=== PATIENT | male | born 1950 | race Caucasian/White ===

== ENCOUNTER 2019-12-28 19:22 | Emergency (ER) | payer MEDICARE, OTHER ==
[2019-12-28] MEDS ORDERED: Proparacaine 0.5% Ophth Soln 15 ML Bottle EYERT STA (19:48)
[2019-12-28] MEDS ORDERED: Fluorescein 1 MG Ophth Strip EYELF ONE (19:48)
--- NOTE | 2019-12-28 20:34 | EDM.PDOC ---
<Oliverio Altamirano - Last Filed: 12/28/19 20:34> ED HPI GENERAL MEDICAL PROBLEM - General Chief Complaint: Eye Problems Stated Complaint: EYE PROBLEM Time Seen by Provider: 12/28/19 19:45 - Related Data Allergies Allergy/AdvReac Type Severity Reaction Status Date / Time Iodinated Contrast Media Allergy Itching Verified 12/28/19 19:41 [Iodinated Contrast Media - IV Dye] Penicillins Allergy Itching Verified 12/28/19 19:41 venom-honey bee Allergy Anaphylactic Verified 12/28/19 19:41 [bee venom (honey bee)] Shock Home Meds: Home Meds Fish Oil/[place]-3 Fatty Acids [Fish Oil 1,000 MG] 1 gm PO DAILY 01/23/14 [History] Pantoprazole [Protonix] 40 mg PO DAILY 01/23/14 [History] Rosuvastatin [Crestor] 5 mg PO DAILY 01/23/14 [History] Valsartan 40 mg PO DAILY 01/23/14 [History] metFORMIN [Glucophage] 1,000 mg PO DAILY 01/23/14 [History] sitaGLIPtin Phosphate [Januvia] 100 mg PO DAILY 01/23/14 [History] ED EYE w/ Add Procedure - Eye Procedure Alcaine Drops Administered: Yes (Proparacaine) Eye FB Removal: Other (The piece of metal just below the pupil opening at the 6 o'clock position. ) Antibiotic Oinment/Drps Admin: Right Eye Progress: The patient tolerated the procedure well he is only going to have an eye patch for 12 hours but he does get antibiotic erythromycin in that right eye overnight. - Additional/Other Procedure(s) Other (Free Text) Procedure(s) [Text1]: Is a piece of metal at the 6 o'clock position just below the pupil opening. I used an ophthalmic bur and remove most of the metal but there was an rust stain in the cornea itself I was not able to remove. Will place him erythromycin ointment in the eye and an eye patch just overnight. If he still has irritation of that eye in the morning he is to go see the gas station operator at [facility]. Departure - Departure Disposition: Home, Self-Care 01 Clinical Impression: Eye foreign bodies Qualifiers: Encounter type: initial encounter Laterality: right Qualified Code(s): T15.91XA - Foreign body on external eye, part unspecified, right eye, initial encounter - Discharge Information Instructions: Eye Foreign Body, [id number] Referrals: Alba Walker MD [Primary Care Provider] - Forms: ED Department Discharge Additional Instructions: You were seen in the emergency department today for sensation of a foreign body in your right eye. On exam, there was a small piece of metal overlying the cornea. The eye was removed using an ophthalmic bur. Erythromycin ointment and eye patch has been placed over your eye. This should stay on until tomorrow morning. After that time, you may remove it. If you are still experiencing pain to the eye, would recommend that you go to the gas station operator at [facility] tomorrow for examination. Return to ER as needed. <Caren Houser - Last Filed: 12/28/19 22:32> ED HPI GENERAL MEDICAL PROBLEM - General Source of Information: Reports: Patient, RN Notes Reviewed History Limitations: Reports: No Limitations - History of Present Illness INITIAL COMMENTS - FREE TEXT/NARRATIVE: Patient is a 69-year-old male presenting to the emergency department with complaints of pain to his right eye. He states yesterday he was grinding on some pipes and thinks he may have got something in his eye. Denies any vision changes, states his eye keeps watering and it makes his nose run. Right Eye Pain Score (Numeric/FACES): 6 Past Medical History HEENT History: Reports: Cataract, Other (See Below) Other HEENT History: glasses Cardiovascular History: Reports: High Cholesterol Endocrine/Metabolic History: Reports: Diabetes, Type II Social & Family History - Tobacco Use Tobacco Use Status *Q: Never Tobacco User Second Hand Smoke Exposure: No - Caffeine Use Caffeine Use: Reports: Coffee - Alcohol Use Days Per Week of Alcohol Use: 7 Number of Drinks Per Day: 2 Total Drinks Per Week: 14 - Recreational Drug Use Recreational Drug Use: No ED ROS GENERAL - Review of Systems Review Of Systems: Comprehensive ROS is negative, except as noted in HPI. ED EXAM GENERAL W FULL EYE - Physical Exam Exam: See Below Exam Limited By: No Limitations General Appearance: Alert, WD/WN, No Apparent Distress Eye Exam: Right Eye: Conjunctival Injection, Foreign Body (Shard of metal overlying the iris at the 6 o'clock position.) Eyelids: Bilateral: Normal Appearance Respiratory/Chest: No Respiratory Distress, Lungs Clear, Normal Breath Sounds, No Accessory Muscle Use, Chest Non-Tender Cardiovascular: Normal Peripheral Pulses, Regular Rate, Rhythm, No Edema, No Gallop, No JVD, No Murmur, No Rub GI/Abdominal: Normal Bowel Sounds, Soft, Non-Tender, No Organomegaly, No Distention, No Abnormal Bruit, No Mass Neurological: Alert Psychiatric: Normal Affect, Normal Mood Skin Exam: Warm, Dry, Intact, Normal Color, No Rash Course - Vital Signs Last Recorded V/S: Last Vital Signs Temp 97.6 F 12/28/19 19:39 Pulse 81 12/28/19 20:44 Resp 16 12/28/19 20:44 BP 152/94 H 12/28/19 20:44 Pulse Ox 96 12/28/19 20:44 - Orders/Labs/Meds Meds: Medications Discontinued Medications Generic Name Dose Route Start Last Admin Trade Name Freq PRN Reason Stop Dose Admin Erythromycin 1 gm 12/28/19 20:36 12/28/19 20:41 Erythromycin 0.5% Ophth Oint EYERT 12/28/19 20:37 1 applic ONETIME ONE Administration Fluorescein Sodium 1 mg 12/28/19 19:48 12/28/19 19:52 Ful-Isela EYELF 12/28/19 19:49 1 mg ONETIME ONE Administration Proparacaine HCl 1 ml 12/28/19 19:48 12/28/19 19:52 Proparacaine 0.5% Ophth Soln EYERT 12/28/19 19:49 1 applic NOW STA Administration - Re-Assessments/Exams Free Text/Narrative Re-Assessment/Exam: Patient is a 69-year-old male presenting to the emergency department with complaints of feeling he has something stuck in his right eye. Exam was completed using Paracaine and fluorescein with a Parham lamp. There is a visible piece of metal embedded in his cornea directly below the pupil at the 6 o'clock position. Spoke with Dr. Altamirano, he will attempt to remove the metal shard using an ophthalmic bur. See his procedure notes for documentation. Departure - Departure Time of Disposition: 20:37 Condition: Good Sepsis Event Note (ED) - Evaluation Sepsis Screening Result: No Definite Risk - Focused Exam Vital Signs: Vital Signs Temp Pulse Resp BP Pulse Ox 12/28/19 20:44 81 16 152/94 H 96 12/28/19 19:39 97.6 F 87 18 150/94 H 100
[2019-12-28] MEDS ORDERED: Erythromycin Base 0.5% Ophth Oint 1 GM Tube EYERT ONE (20:36)
[2019-12-28 20:45] VITALS: BP 152/94; PULSE 81
== END 2019-12-28 20:51 | disposition home or self-care (01) ==
LOC: JD.ED 19:22
DX: T15.91XA Foreign body on external eye, part unspecified, right eye, initial encounter (principal); E78.00 Pure hypercholesterolemia, unspecified; E11.9 Type 2 diabetes mellitus without complications; Z91.041 Radiographic dye allergy status; Z88.0 Allergy status to penicillin; Z91.030 Bee allergy status; Z79.899 Other long term (current) drug therapy
CPT/HCPCS: 65220; 99283; A9270

== ENCOUNTER 2020-05-12 01:54 | Emergency (ER) | payer MEDICARE, OTHER ==
[2020-05-12 02:12] VITALS: BP 157/93; PULSE 100
[2020-05-12] MEDS ORDERED: methylPREDNISolone Sodium Succinate 125 MG/2 ML SDV IVPUSH ONE (03:34)
--- NOTE | 2020-05-12 04:05 | EDM.PDOC ---
ED HPI GENERAL MEDICAL PROBLEM - General Chief Complaint: Respiratory Problem Stated Complaint: SOB Time Seen by Provider: 05/12/20 02:08 Source of Information: Reports: Patient History Limitations: Reports: No Limitations - History of Present Illness INITIAL COMMENTS - FREE TEXT/NARRATIVE: The patient has come in with shortness of breath. He has chronic lung disease of some sort. He says that he has had years of dust inhalation and is noted to have chronic lung problems as a result of this. He has been evaluated at [facility] for this but cannot tell me what specifically was done for him. He receives definitive care for his respiratory issues with cardiac cath lab technologist at [facility] in [place]. As far as the onset of the shortness of breath the patient claims that this is chronic and has been going on for months and apparently there is been some exacerbation in recent days onset of which not altogether clear but he said he came in tonight because he could not sleep. No fever. No chest pain. No GI or symptoms. No other symptoms of acute illness otherwise. He is a non-smoker. He is a type II diabetic. - Related Data Allergies Allergy/AdvReac Type Severity Reaction Status Date / Time Iodinated Contrast Media Allergy Itching Verified 05/12/20 02:13 [Iodinated Contrast Media - IV Dye] Penicillins Allergy Itching Verified 05/12/20 02:13 venom-honey bee Allergy Anaphylactic Verified 05/12/20 02:13 [bee venom (honey bee)] Shock Home Meds: Home Meds Fish Oil/[place]-3 Fatty Acids [Fish Oil 1,000 MG] 1 gm PO DAILY 01/23/14 [History] Pantoprazole [Protonix] 40 mg PO DAILY 01/23/14 [History] Rosuvastatin [Crestor] 5 mg PO DAILY 01/23/14 [History] Valsartan 40 mg PO DAILY 01/23/14 [History] metFORMIN [Glucophage] 1,000 mg PO DAILY 01/23/14 [History] sitaGLIPtin Phosphate [Januvia] 100 mg PO DAILY 01/23/14 [History] Past Medical History HEENT History: Reports: Cataract, Other (See Below) Other HEENT History: glasses Cardiovascular History: Reports: High Cholesterol Respiratory History: Reports: Other (See Below) Other Respiratory History: "lung scaring" Gastrointestinal History: Reports: GERD, Other (See Below) Other Gastrointestinal History: bleeding ulcer Endocrine/Metabolic History: Reports: Diabetes, Type II Social & Family History - Tobacco Use Tobacco Use Status *Q: Never Tobacco User Second Hand Smoke Exposure: No - Caffeine Use Caffeine Use: Reports: Coffee, Soda - Alcohol Use Days Per Week of Alcohol Use: 7 Number of Drinks Per Day: 4 Total Drinks Per Week: 28 Date of Last Drink: 05/12/20 Time of Last Drink: 18:00 - Recreational Drug Use Recreational Drug Use: No ED ROS GENERAL - Review of Systems Review Of Systems: Comprehensive ROS is negative, except as noted in HPI. ED EXAM, GENERAL - Physical Exam Exam: See Below Free Text/Narrative:: Patient is alert, no distress, but looks miserable. Does not look toxic. Skin is warm and dry with normal turgor. PERRLA EOMI. ENT grossly normal by inspection. Neck is supple. Patient cannot tolerate lying flat at this point. Lungs are notable for diminished breath sounds bilaterally and pectoriloquy. Heart is regular without loud murmur. Abdomen is soft and nontender. No flank tenderness. No peripheral edema cyanosis or clubbing of the digits. Neurologically the patient is intact with fluent speech no weakness and no sensory or motor deficit. His mood and affect are appropriate. #1 Interpretation EKG Date: 05/12/20 Time: 02:45 Rhythm: NSR Rate (Beats/Min): 97 [place]: Normal P-Wave: Present QRS: LBBB ST-T: Depressed QT: Prolonged Comparison: NA - No Prior EKG EKG Interpretation Comments: Findings as noted above, no jessi acute change. Course - Vital Signs Text/Narrative:: The patient is hypoxemic. It is not clear what his baseline might be. Troponin is negative. BNP about 2000. There is no white count chest x-ray shows extens bela presumably chronic changes but there is no previous x-ray for comparison. As patient has received all definitive care at [facility] he is being transferred. Accepted as a direct admission by Dr. Vasquez. Last Recorded V/S: Last Vital Signs Temp 36.2 C 05/12/20 02:11 Pulse 100 05/12/20 02:11 Resp 20 05/12/20 02:11 BP 157/93 H 05/12/20 02:11 Pulse Ox 92 L 05/12/20 02:11 - Orders/Labs/Meds Orders: Active Orders 24 hr Category Date Time Status EKG Documentation Completion [RC] STAT Care 05/12/20 02:33 Active RT Arterial Blood Gases, ABG [RC] Click to Edit Care 05/12/20 02:34 Active Chest 1V Frontal [CR] Stat Exams 05/12/20 02:32 Taken CBC WITH MANUAL DIFF [HEME] Stat Lab 05/12/20 02:22 Results CULTURE BLOOD [BC] Stat Lab 05/12/20 02:59 Received CULTURE BLOOD [BC] Stat Lab 05/12/20 03:15 Received UA RFX JACIEL AND CULT IF INDIC [URIN] Stat Lab 05/12/20 03:45 Received Blood Culture x2 Reflex Set [OM.PC] Stat Oth 05/12/20 02:33 Ordered Labs: Laboratory Tests 05/12/20 05/12/20 05/12/20 Range/Units 02:22 02:22 02:22 WBC 8.05 (4.23-9.07) K/mm3 RBC 4.99 (4.63-6.08) M/mm3 Hgb 15.9 (13.7-17.5) gm/dl Hct 47.8 (40.1-51.0) % MCV 95.8 H (79.0-92.2) fl MCH 31.9 (25.7-32.2) pg MCHC 33.3 (32.2-35.5) g/dl RDW Std Deviation 54.1 H (35.1-43.9) fL Plt Count 178 (163-337) K/mm3 MPV 10.5 (9.4-12.3) fl PT 11.0 (9.7-12.0) SECONDS INR 1.03 APTT (21.7-31.4) SECONDS D-Dimer, Quantitative (0.19-0.50) mg/L Puncture Site ABG pH (7.35-7.45) ABG pCO2 (35.0-45.0) mmHg ABG pO2 (80.0-100.0) mmHg ABG HCO3 (22.0-26.0) meq/L ABG O2 Saturation (96.0-97.0) % ABG Base Excess (-2-2.0) Noble Test A-a Gradient mmHg O2 Delivery Device FiO2 (21.00-100.00) % Sodium 141 (136-145) mEq/L Potassium 4.5 (3.5-5.1) mEq/L Chloride 105 (98-107) mEq/L Carbon Dioxide 25 (21-32) mEq/L Anion Gap 15.5 H (5-15) BUN 20 H (7-18) mg/dL Creatinine 1.4 H (0.7-1.3) mg/dL Est Cr Clr Drug Dosing 50.69 mL/min Estimated GFR (MDRD) 50 (>60) mL/min BUN/Creatinine Ratio 14.3 (14-18) Glucose 180 H (80-115) mg/dL Calcium 9.4 (8.5-10.1) mg/dL Magnesium 1.5 L (1.8-2.4) mg/dl Total Bilirubin 0.6 (0.2-1.0) mg/dL AST 46 H (15-37) U/L ALT 55 (16-63) U/L Alkaline Phosphatase 66 (46-116) U/L Creatine Kinase 97 (39-308) U/L Troponin I 0.019 (0.00-0.056) ng/mL NT-Pro-B Natriuret Pep (0-125) pg/mL Total Protein 7.0 (6.4-8.2) g/dl Albumin 3.5 (3.4-5.0) g/dl Globulin 3.5 gm/dL Albumin/Globulin Ratio 1.0 (1-2) TSH 3rd Generation 3.275 (0.358-3.74) uIU/mL SARS-CoV-2 RNA (RADHA) (NEGATIVE) 05/12/20 05/12/20 05/12/20 Range/Units 02:22 02:22 02:22 WBC (4.23-9.07) K/mm3 RBC (4.63-6.08) M/mm3 Hgb (13.7-17.5) gm/dl Hct (40.1-51.0) % MCV (79.0-92.2) fl MCH (25.7-32.2) pg MCHC (32.2-35.5) g/dl RDW Std Deviation (35.1-43.9) fL Plt Count (163-337) K/mm3 MPV (9.4-12.3) fl PT (9.7-12.0) SECONDS INR APTT 22.8 (21.7-31.4) SECONDS D-Dimer, Quantitative 0.73 H (0.19-0.50) mg/L Puncture Site ABG pH (7.35-7.45) ABG pCO2 (35.0-45.0) mmHg ABG pO2 (80.0-100.0) mmHg ABG HCO3 (22.0-26.0) meq/L ABG O2 Saturation (96.0-97.0) % ABG Base Excess (-2-2.0) Noble Test A-a Gradient mmHg O2 Delivery Device FiO2 (21.00-100.00) % Sodium (136-145) mEq/L Potassium (3.5-5.1) mEq/L Chloride (98-107) mEq/L Carbon Dioxide (21-32) mEq/L Anion Gap (5-15) BUN (7-18) mg/dL Creatinine (0.7-1.3) mg/dL Est Cr Clr Drug Dosing mL/min Estimated GFR (MDRD) (>60) mL/min BUN/Creatinine Ratio (14-18) Glucose (80-115) mg/dL Calcium (8.5-10.1) mg/dL Magnesium (1.8-2.4) mg/dl Total Bilirubin (0.2-1.0) mg/dL AST (15-37) U/L ALT (16-63) U/L Alkaline Phosphatase (46-116) U/L Creatine Kinase (39-308) U/L Troponin I (0.00-0.056) ng/mL NT-Pro-B Natriuret Pep 2057 H (0-125) pg/mL Total Protein (6.4-8.2) g/dl Albumin (3.4-5.0) g/dl Globulin gm/dL Albumin/Globulin Ratio (1-2) TSH 3rd Generation (0.358-3.74) uIU/mL SARS-CoV-2 RNA (RADHA) (NEGATIVE) 05/12/20 05/12/20 Range/Units 02:39 02:45 WBC (4.23-9.07) K/mm3 RBC (4.63-6.08) M/mm3 Hgb (13.7-17.5) gm/dl Hct (40.1-51.0) % MCV (79.0-92.2) fl MCH (25.7-32.2) pg MCHC (32.2-35.5) g/dl RDW Std Deviation (35.1-43.9) fL Plt Count (163-337) K/mm3 MPV (9.4-12.3) fl PT (9.7-12.0) SECONDS INR APTT (21.7-31.4) SECONDS D-Dimer, Quantitative (0.19-0.50) mg/L Puncture Site Rt radial ABG pH 7.43 (7.35-7.45) ABG pCO2 33.9 L (35.0-45.0) mmHg ABG pO2 60.0 L (80.0-100.0) mmHg ABG HCO3 22.0 (22.0-26.0) meq/L ABG O2 Saturation 89.5 L (96.0-97.0) % ABG Base Excess -1.1 (-2-2.0) Noble Test Positive A-a Gradient 48 mmHg O2 Delivery Device Room air FiO2 21.00 (21.00-100.00) % Sodium (136-145) mEq/L Potassium (3.5-5.1) mEq/L Chloride (98-107) mEq/L Carbon Dioxide (21-32) mEq/L Anion Gap (5-15) BUN (7-18) mg/dL Creatinine (0.7-1.3) mg/dL Est Cr Clr Drug Dosing mL/min Estimated GFR (MDRD) (>60) mL/min BUN/Creatinine Ratio (14-18) Glucose (80-115) mg/dL Calcium (8.5-10.1) mg/dL Magnesium (1.8-2.4) mg/dl Total Bilirubin (0.2-1.0) mg/dL AST (15-37) U/L ALT (16-63) U/L Alkaline Phosphatase (46-116) U/L Creatine Kinase (39-308) U/L Troponin I (0.00-0.056) ng/mL NT-Pro-B Natriuret Pep (0-125) pg/mL Total Protein (6.4-8.2) g/dl Albumin (3.4-5.0) g/dl Globulin gm/dL Albumin/Globulin Ratio (1-2) TSH 3rd Generation (0.358-3.74) uIU/mL SARS-CoV-2 RNA (RADHA) Negative (NEGATIVE) Meds: Medications Discontinued Medications Generic Name Dose Route Start Last Admin Trade Name Freq PRN Reason Stop Dose Admin Methylprednisolone Sodium Succinate 125 mg 05/12/20 03:34 05/12/20 03:40 Methylprednisolone Sodium Succinate 125 Mg/2 Ml Sdv IVPUSH 05/12/20 03:35 125 mg ONETIME ONE Administration Departure - Departure Time of Disposition: 04:06 Disposition: DC/Tfer to Acute Hospital 02 Condition: Fair Clinical Impression: Hypoxemia, Chronic lung disease, History of occupational exposure to risk factor, Elevated brain natriuretic peptide (BNP) level, Left bundle branch block, Cardiomegaly - Discharge Information Referrals: Alba Walker MD [Primary Care Provider] - Sepsis Event Note (ED) - Evaluation Sepsis Screening Result: No Definite Risk - Focused Exam Vital Signs: Vital Signs Temp Pulse Resp BP Pulse Ox 05/12/20 02:11 36.2 C 100 20 157/93 H 92 L - My Orders Last 24 Hours: My Active Orders 05/12/20 02:22 CBC WITH MANUAL DIFF [HEME] Stat 05/12/20 02:32 Chest 1V Frontal [CR] Stat 05/12/20 02:33 EKG Documentation Completion [RC] STAT Blood Culture x2 Reflex Set [OM.PC] Stat 05/12/20 02:34 RT Arterial Blood Gases, ABG [RC] Click to Edit 05/12/20 02:59 CULTURE BLOOD [BC] Stat 05/12/20 03:15 CULTURE BLOOD [BC] Stat 05/12/20 03:45 UA RFX JACIEL AND CULT IF INDIC [URIN] Stat - Assessment/Plan Last 24 Hours: My Active Orders 05/12/20 02:22 CBC WITH MANUAL DIFF [HEME] Stat 05/12/20 02:32 Chest 1V Frontal [CR] Stat 05/12/20 02:33 EKG Documentation Completion [RC] STAT Blood Culture x2 Reflex Set [OM.PC] Stat 05/12/20 02:34 RT Arterial Blood Gases, ABG [RC] Click to Edit 05/12/20 02:59 CULTURE BLOOD [BC] Stat 05/12/20 03:15 CULTURE BLOOD [BC] Stat 05/12/20 03:45 UA RFX JACIEL AND CULT IF INDIC [URIN] Stat
--- NOTE | 2020-05-12 07:43 | CR ---
Chest: Portable view of the chest was obtained. Comparison: Prior chest x-ray of 01/08/10. Heart is enlarged. Diffuse increased pulmonary vessels are seen. Bony structures are unremarkable. Impression: 1. Findings suspicious for fairly severe CHF if patient has no infectious symptoms. Diagnostic code #3
== END 2020-05-12 05:50 ==
LOC: JD.ED 01:54
DX: I44.7 Left bundle-branch block, unspecified (principal); I51.7 Cardiomegaly; R09.02 Hypoxemia; J98.4 Other disorders of lung; E78.00 Pure hypercholesterolemia, unspecified; K21.9 Gastro-esophageal reflux disease without esophagitis; E11.9 Type 2 diabetes mellitus without complications; Z79.84 Long term (current) use of oral hypoglycemic drugs; Z79.899 Other long term (current) drug therapy; Z57.9 Occupational exposure to unspecified risk factor; Z91.041 Radiographic dye allergy status; Z88.0 Allergy status to penicillin; Z20.822 Contact with and (suspected) exposure to COVID-19
CPT/HCPCS: 36415; 36600; 71045; 80053; 81001; 82550; 82803; 83735; 83880; 84443; 84484; 85007; 85027; 85379; 85610; 85730; 87040; 93005; 96374; 99285; J2930; U0002; 87186; 93010; 99284

== ENCOUNTER 2020-12-17 09:24 | Inpatient (IN) | payer MEDICARE, OTHER ==
[2020-12-17] MEDS ORDERED: Dexamethasone 4 MG/ML SDV IVPUSH ONE (10:50)
[2020-12-17] MEDS ORDERED: REMDESIVIR 200 MG in Sodium Chloride 0.9% 250 ML IV ONE ×2 (10:50→11:30)
--- NOTE | 2020-12-17 10:54 | EDM.PDOC ---
ED HPI GENERAL MEDICAL PROBLEM - General Chief Complaint: Respiratory Problem Stated Complaint: SOB SENT FROM [facility] Time Seen by Provider: 12/17/20 10:00 Source of Information: Reports: Patient, Provider History Limitations: Reports: No Limitations - History of Present Illness INITIAL COMMENTS - FREE TEXT/NARRATIVE: Patient is a 70-year-old male with a past medical history of CHF, pulmonary fibrosis and hypertension presenting with chief complaint of shortness of breath. Patient reports symptoms have been ongoing for the past several days. Patient has had associated dry cough, fatigue, body aches. The patient was in the walk-in clinic earlier today and diagnosed with Covid. He was also found to be hypoxic and therefore sent to the emergency room. Patient is not on home oxygen at all. Patient has been vaccinated against COVID-19. Patient otherwise reports compliance with medications. He denies any increased swelling in his lower extremities. No calf pain. No history of blood clots. - Related Data Allergies Allergy/AdvReac Type Severity Reaction Status Date / Time Iodinated Contrast Media Allergy Itching Verified 12/17/20 21:17 [Iodinated Contrast Media - IV Dye] Penicillins Allergy Itching Verified 12/17/20 21:17 venom-honey bee Allergy Anaphylactic Verified 12/17/20 21:17 [bee venom (honey bee)] Shock Home Meds: Home Meds Fish Oil/[place]-3 Fatty Acids [Fish Oil 1,000 MG] 1 gm PO DAILY 01/23/14 [History] Pantoprazole [Protonix] 40 mg PO DAILY 01/23/14 [History] Rosuvastatin [Crestor] 10 mg PO BEDTIME 01/23/14 [History] Valsartan 40 mg PO DAILY 01/23/14 [History] metFORMIN [Glucophage] 1,000 mg PO BIDMEALS 01/23/14 [History] sitaGLIPtin Phosphate [Januvia] 100 mg PO DAILY 01/23/14 [History] Albuterol [Proventil HFA] 2 inhalation INH Q4H PRN 12/17/20 [History] Fluticasone/Vilanterol [Breo Ellipta 200-25 MCG Inhalation Kit] 1 inhalation INH DAILY 12/17/20 [History] Folic Acid 1 mg PO DAILY 12/17/20 [History] Thiamine [Vitamin B-1] 100 mg PO DAILY 12/17/20 [History] Torsemide [Demadex] 20 mg PO DAILY 12/17/20 [History] carvediloL [Carvedilol] 3.125 mg PO BID 12/17/20 [History] Past Medical History HEENT History: Reports: Cataract, Other (See Below) Other HEENT History: glasses Cardiovascular History: Reports: High Cholesterol Respiratory History: Reports: Other (See Below) Other Respiratory History: "lung scaring" Gastrointestinal History: Reports: GERD, Other (See Below) Other Gastrointestinal History: bleeding ulcer Endocrine/Metabolic History: Reports: Diabetes, Type II Social & Family History - Tobacco Use Tobacco Use Status *Q: Never Tobacco User - Caffeine Use Caffeine Use: Reports: Coffee - Recreational Drug Use Recreational Drug Use: No ED ROS GENERAL - Review of Systems Review Of Systems: See Below Free Text/Narrative/Comment: In addition to that documented in the HPI above, the additional ROS was obtained: Constitutional: Denies fevers or chills Eyes: Denies vision changes ENMT: Denies sore throat CV: Denies chest pain Resp: Per HPI GI: Denies vomiting or diarrhea : Denies painful urination MSK: Denies recent trauma Skin: Denies new rashes Neuro: Denies new numbness or tingling or weakness Endocrine: Denies unexpected weight loss Heme: Denies bleeding disorders ED EXAM, GENERAL - Physical Exam Exam: See Below Free Text/Narrative:: I have reviewed the triage vital signs Const: Well nourished, well developed, appears stated age Eyes: Pupils Equal and reactive to light bilaterally, no conjunctival injection HENT: No signs of trauma or swelling, Neck supple without meningismus CV: Regular Rate Rhythm, Warm, well-perfused extremities RESP: Mildly tachypneic but able to speak full sentences. GI: soft, non-tender, non-distended, no masses MSK: No gross deformities appreciated Skin: Warm, dry. No rashes Neuro: Alert, wireless operator II-XII grossly intact. Sensation and motor function of extremities grossly intact. Psych: Appropriate mood and affect. #1 Interpretation EKG Date: 12/17/20 Time: 09:38 Rhythm: NSR Rate (Beats/Min): 99 [place]: LAD-Left [place] Deviation P-Wave: Present QRS: LBBB ST-T: Elevated Comparison: No Change EKG Interpretation Comments: abnormal EKG Course - Vital Signs Last Recorded V/S: Last Vital Signs Temp 36.7 C 12/18/20 23:37 Pulse 69 12/18/20 23:37 Resp 28 H 12/18/20 23:37 BP 101/85 12/18/20 23:37 Pulse Ox 88 L 12/18/20 23:55 - Orders/Labs/Meds Orders: Active Orders 24 hr Category Date Time Status Remdesivir 100 mg Med 12/18/20 08:00 Active Sodium Chloride 0.9% [Normal Saline] 100 ml IV Q24H Medication Orders Acetaminophen (Acetaminophen 325 Mg Tab) 650 mg PO Q4H PRN PRN Reason: Pain (Mild 1-3)/fever Last Admin: 12/18/20 10:43 Dose: 650 mg Documented by: RASHMI Albuterol (Albuterol 6.7 Gm Inhaler) 0 gm INH Q4H PRN PRN Reason: Shortness of Breath Albuterol/Ipratropium (Albuterol/Ipratropium 3.0-0.5 Mg/3 Ml Neb Soln) 3 ml NEB Q4H PRN PRN Reason: Shortness Of Breath/wheezing Last Admin: 12/18/20 21:12 Dose: 3 ml Documented by: Admin: 12/18/20 17:04 Dose: 3 ml Documented by: Admin: 12/18/20 07:52 Dose: 3 ml Documented by: REJI Benzocaine/Menthol (Benzocaine/Cetylpyridinium/Menthol Lozenge) 1 lozenge MUCMEM Q2H PRN PRN Reason: Sore Throat Last Admin: 12/17/20 22:29 Dose: 1 lozenge Documented by: SHORTY Carvedilol (Carvedilol 3.125 Mg Tab) 3.125 mg PO BIDMEALS [facility] Last Admin: 12/18/20 18:01 Dose: 3.125 mg Documented by: Admin: 12/18/20 06:38 Dose: 3.125 mg Documented by: Admin: 12/17/20 22:01 Dose: 3.125 mg Documented by: SHORTY Docusate Sodium (Docusate Sodium 100 Mg Cap) 100 mg PO BID PRN PRN Reason: Constipation Enoxaparin Sodium (Enoxaparin 30 Mg/0.3 Ml Syringe) 30 mg SUBCUT DAILY [facility] Last Admin: 12/18/20 10:44 Dose: 30 mg Documented by: RASHMI Folic Acid (Folic Acid 1 Mg Tab) 1 mg PO DAILY [facility] Last Admin: 12/18/20 08:02 Dose: 1 mg Documented by: RASHMI Furosemide (Furosemide 40 Mg/4 Ml Vial) 40 mg IVPUSH BIDDIURETIC [facility] Last Admin: 12/18/20 13:38 Dose: 40 mg Documented by: Admin: 12/18/20 06:39 Dose: 40 mg Documented by: SHORTY Remdesivir 100 mg/ Sodium (Chloride) 100 mls @ 100 mls/hr IV Q24H [facility] Stop: 12/21/20 08:59 Last Admin: 12/18/20 08:02 Dose: 100 mls/hr Documented by: RASHMI Insulin Human Lispro (Insulin Lispro 100 Unit/Ml 3 Ml Kwikpen) 0 unit SUBCUT QIDACANDBED [facility]; Protocol Last Admin: 12/18/20 21:59 Dose: Not Given Documented by: Admin: 12/18/20 20:59 Dose: 15 units Documented by: Admin: 12/18/20 17:58 Dose: 15 units Documented by: RASHMI Insulin Human Lispro (Insulin Lispro 100 Unit/Ml 3 Ml Kwikpen) 5 unit SUBCUT TIDAC [facility] Methylprednisolone Sodium Succinate (Methylprednisolone Sodium Succinate 40 Mg/1 Ml Sdv) 60 mg IVPUSH Q6H [facility] Last Admin: 12/19/20 01:34 Dose: 60 mg Documented by: Admin: 12/18/20 20:30 Dose: 60 mg Documented by: Admin: 12/18/20 13:35 Dose: 60 mg Documented by: Admin: 12/18/20 08:10 Dose: 60 mg Documented by: Admin: 12/18/20 04:16 Dose: 60 mg Documented by: Admin: 12/17/20 22:00 Dose: 60 mg Documented by: SHORTY Ondansetron HCl (Ondansetron 4 Mg Tab.Dis) 4 mg PO Q4H PRN PRN Reason: nausea, able to take PO Ondansetron HCl (Ondansetron 4 Mg/2 Ml Sdv) 4 mg IV Q4H PRN PRN Reason: Nausea/Vomiting Pantoprazole Sodium (Pantoprazole 40 Mg Tab.Cr) 40 mg PO DAILY [facility] Last Admin: 12/18/20 08:02 Dose: 40 mg Documented by: RASHMI Rosuvastatin Calcium (Rosuvastatin 10 Mg Tab) 10 mg PO DAILY [facility] Last Admin: 12/18/20 08:02 Dose: 10 mg Documented by: RASHMI Thiamine HCl (Thiamine 100 Mg Tab) 100 mg PO DAILY [facility] Last Admin: 12/18/20 08:02 Dose: 100 mg Documented by: RASHMI Labs: Laboratory Tests 12/17/20 12/17/20 12/17/20 Range/Units 09:45 09:45 09:45 WBC 3.71 L (4.23-9.07) K/mm3 RBC 4.58 L (4.63-6.08) M/mm3 Hgb 14.9 (13.7-17.5) gm/dl Hct 44.5 (40.1-51.0) % MCV 97.2 H (79.0-92.2) fl MCH 32.5 H (25.7-32.2) pg MCHC 33.5 (32.2-35.5) g/dl RDW Std Deviation 49.3 H (35.1-43.9) fL Plt Count 92 L D (163-337) K/mm3 MPV 10.1 (9.4-12.3) fl Neut % (Auto) 82.0 H (34.0-67.9) % Lymph % (Auto) 7.5 L (21.8-53.1) % [place] % (Auto) 10.0 (5.3-12.2) % Eos % (Auto) 0 L (0.8-7.0) Baso % (Auto) 0.0 L (0.1-1.2) % Neut # (Auto) 3.04 (1.78-5.38) K/mm3 Lymph # (Auto) 0.28 L (1.32-3.57) K/mm3 [place] # (Auto) 0.37 (0.30-0.82) K/mm3 Eos # (Auto) 0.00 L (0.04-0.54) K/mm3 Baso # (Auto) 0.00 L (0.01-0.08) K/mm3 Manual Slide Review Abnormal smear PT 10.7 (9.7-12.0) SECONDS INR 0.96 D-Dimer, Quantitative 1.45 H (0.19-0.50) mg/L Sodium 134 L (136-145) mEq/L Potassium 4.7 (3.5-5.1) mEq/L Chloride 98 (98-107) mEq/L Carbon Dioxide 25 (21-32) mEq/L Anion Gap 15.7 H (5-15) BUN 27 H (7-18) mg/dL Creatinine 2.0 H (0.7-1.3) mg/dL Est Cr Clr Drug Dosing 24.31 mL/min Estimated GFR (MDRD) 33 (>60) mL/min BUN/Creatinine Ratio 13.5 L (14-18) Glucose 142 H (70-99) mg/dL Calcium 8.5 (8.5-10.1) mg/dL Total Bilirubin 0.5 (0.2-1.0) mg/dL AST 60 H (15-37) U/L ALT 46 (16-63) U/L Alkaline Phosphatase 49 (46-116) U/L Troponin I 0.034 (0.00-0.056) ng/mL C-Reactive Protein 7.9 H* (<1.0) mg/dL NT-Pro-B Natriuret Pep (0-125) pg/mL Total Protein 6.6 (6.4-8.2) g/dl Albumin 3.3 L (3.4-5.0) g/dl Globulin 3.3 gm/dL Albumin/Globulin Ratio 1.0 (1-2) 12/17/20 Range/Units 09:45 WBC (4.23-9.07) K/mm3 RBC (4.63-6.08) M/mm3 Hgb (13.7-17.5) gm/dl Hct (40.1-51.0) % MCV (79.0-92.2) fl MCH (25.7-32.2) pg MCHC (32.2-35.5) g/dl RDW Std Deviation (35.1-43.9) fL Plt Count (163-337) K/mm3 MPV (9.4-12.3) fl Neut % (Auto) (34.0-67.9) % Lymph % (Auto) (21.8-53.1) % [place] % (Auto) (5.3-12.2) % Eos % (Auto) (0.8-7.0) Baso % (Auto) (0.1-1.2) % Neut # (Auto) (1.78-5.38) K/mm3 Lymph # (Auto) (1.32-3.57) K/mm3 [place] # (Auto) (0.30-0.82) K/mm3 Eos # (Auto) (0.04-0.54) K/mm3 Baso # (Auto) (0.01-0.08) K/mm3 Manual Slide Review PT (9.7-12.0) SECONDS INR D-Dimer, Quantitative (0.19-0.50) mg/L Sodium (136-145) mEq/L Potassium (3.5-5.1) mEq/L Chloride (98-107) mEq/L Carbon Dioxide (21-32) mEq/L Anion Gap (5-15) BUN (7-18) mg/dL Creatinine (0.7-1.3) mg/dL Est Cr Clr Drug Dosing mL/min Estimated GFR (MDRD) (>60) mL/min BUN/Creatinine Ratio (14-18) Glucose (70-99) mg/dL Calcium (8.5-10.1) mg/dL Total Bilirubin (0.2-1.0) mg/dL AST (15-37) U/L ALT (16-63) U/L Alkaline Phosphatase (46-116) U/L Troponin I (0.00-0.056) ng/mL C-Reactive Protein (<1.0) mg/dL NT-Pro-B Natriuret Pep 2373 H (0-125) pg/mL Total Protein (6.4-8.2) g/dl Albumin (3.4-5.0) g/dl Globulin gm/dL Albumin/Globulin Ratio (1-2) Meds: Medications Generic Name Dose Route Start Last Admin Trade Name Freq PRN Reason Stop Dose Admin Acetaminophen 650 mg 12/17/20 18:58 12/18/20 10:43 Acetaminophen 325 Mg Tab PO 650 mg Q4H PRN Administration Pain (Mild 1-3)/fever Albuterol 0 gm 12/17/20 19:04 Albuterol 6.7 Gm Inhaler INH Q4H PRN Shortness of Breath Albuterol/Ipratropium 3 ml 12/17/20 18:58 12/18/20 21:12 Albuterol/Ipratropium 3.0-0.5 Mg/3 Ml Neb Soln NEB 3 ml Q4H PRN Administration Shortness Of Breath/wheezing Benzocaine/Menthol 1 lozenge 12/17/20 21:59 12/17/20 22:29 Benzocaine/Cetylpyridinium/Menthol Lozenge MUCMEM 1 lozenge Q2H PRN Administration Sore Throat Carvedilol 3.125 mg 12/17/20 21:00 12/18/20 18:01 Carvedilol 3.125 Mg Tab PO 3.125 mg BIDMEALS RUSSELL Administration Docusate Sodium 100 mg 12/17/20 18:58 Docusate Sodium 100 Mg Cap PO BID PRN Constipation Enoxaparin Sodium 30 mg 12/18/20 09:00 12/18/20 10:44 Enoxaparin 30 Mg/0.3 Ml Syringe SUBCUT 30 mg DAILY RUSSELL Administration Folic Acid 1 mg 12/18/20 09:00 12/18/20 08:02 Folic Acid 1 Mg Tab PO 1 mg DAILY RUSSELL Administration Furosemide 40 mg 12/18/20 06:00 12/18/20 13:38 Furosemide 40 Mg/4 Ml Vial IVPUSH 40 mg BIDDIURETIC RUSSELL Administration Remdesivir 100 mg/ Sodium 100 mls @ 100 mls/hr 12/18/20 08:00 12/18/20 08:02 Chloride IV 12/21/20 08:59 100 mls/hr Q24H RUSSELL Administration Insulin Human Lispro 0 unit 12/18/20 17:00 12/18/20 21:59 Insulin Lispro 100 Unit/Ml 3 Ml Kwikpen SUBCUT Not Given QIDACANDBED [facility] Protocol Insulin Human Lispro 5 unit 12/19/20 07:00 Insulin Lispro 100 Unit/Ml 3 Ml Kwikpen SUBCUT TIDAC RUSSELL Methylprednisolone Sodium Succinate 60 mg 12/17/20 20:00 12/19/20 01:34 Methylprednisolone Sodium Succinate 40 Mg/1 Ml Sdv IVPUSH 60 mg Q6H RUSSELL Administration Ondansetron HCl 4 mg 12/17/20 18:58 Ondansetron 4 Mg Tab.Dis PO Q4H PRN nausea, able to take PO Ondansetron HCl 4 mg 12/17/20 18:58 Ondansetron 4 Mg/2 Ml Sdv IV Q4H PRN Nausea/Vomiting Pantoprazole Sodium 40 mg 12/18/20 09:00 12/18/20 08:02 Pantoprazole 40 Mg Tab.Cr PO 40 mg DAILY RUSSELL Administration Rosuvastatin Calcium 10 mg 12/18/20 09:00 12/18/20 08:02 Rosuvastatin 10 Mg Tab PO 10 mg DAILY RUSSELL Administration Thiamine HCl 100 mg 12/18/20 09:00 12/18/20 08:02 Thiamine 100 Mg Tab PO 100 mg DAILY RUSSELL Administration Discontinued Medications Generic Name Dose Route Start Last Admin Trade Name Freq PRN Reason Stop Dose Admin Dexamethasone 6 mg 12/17/20 10:50 12/17/20 11:05 Dexamethasone 4 Mg/Ml Sdv IVPUSH 12/17/20 10:51 6 mg ONETIME ONE Administration Enoxaparin Sodium 30 mg 12/18/20 09:00 12/18/20 17:04 Enoxaparin 30 Mg/0.3 Ml Syringe SUBCUT 12/18/20 11:00 Not Given DAILY RUSSELL Furosemide 20 mg 12/17/20 14:45 12/17/20 15:07 Furosemide 20 Mg/2 Ml Vial IVPUSH 12/17/20 14:46 20 mg ONETIME ONE Administration Furosemide 40 mg 12/17/20 21:00 12/17/20 22:01 Furosemide 40 Mg/4 Ml Vial IVPUSH 40 mg BID RUSSELL Administration Remdesivir 200 mg/ Sodium 250 mls @ 250 mls/hr 12/17/20 11:30 12/17/20 11:45 Chloride IV 12/17/20 12:29 250 mls/hr ONETIME ONE Administration Insulin Human Lispro 0 unit 12/17/20 22:00 12/18/20 12:47 Insulin Lispro 100 Unit/Ml 3 Ml Kwikpen SUBCUT 15 unit QIDACANDBED RUSSELL Administration Protocol - Re-Assessments/Exams Free Text/Narrative Re-Assessment/Exam: 12/17/20 1200 On arrival, patient significantly hypoxic and was requiring 5 L via nasal cannula. Patient is still mildly tachypneic. Patient does have evidence of COVID hypoxia but also may have component of CHF exacerbation. Patient does have pulmonary edema on chest x-ray. Laboratory studies noted. Patient does have inflammatory markers with elevated CRP, D-dimer. Unlikely pulmonary embolism at this time. Patient does require admission for his respiratory status. He was given Lasix, dexamethasone, remdesivir in the emergency room. At this time, there are no beds available in the hospital or the [facility]. Patient currently boarding in the emergency room in stable condition. Departure - Departure Time of Disposition: 19:00 Disposition: Admitted As Inpatient 66 Clinical Impression: COVID-19, CHF exacerbation - Discharge Information Sepsis Event Note (ED) - Evaluation Sepsis Screening Result: No Definite Risk - Problem List Review Problem List Initiated/Reviewed/Updated: Yes - My Orders Last 24 Hours: My Active Orders 12/18/20 08:00 Remdesivir 100 mg Sodium Chloride 0.9% [Normal Saline] 100 ml IV Q24H - Assessment/Plan Last 24 Hours: My Active Orders 12/18/20 08:00 Remdesivir 100 mg Sodium Chloride 0.9% [Normal Saline] 100 ml IV Q24H Assessment:: Patient is a 7-year-old male presented to the emergency room with complaint of shortness of breath. Patient significantly hypoxic on arrival. Patient did well with 5 L via nasal cannula. Evidence of Covid 19 with CHF exacerbation. Patient will require admission for further management and treatment. Case discussed with Dr. Marcus who agreed to accept patient for admission. Patient given dexamethasone, remdesivir and Lasix while in the emergency room.
--- NOTE | 2020-12-17 14:25 | CR ---
Chest: Frontal view of the chest was obtained. Comparison: Prior chest x-ray of 05/12/20. Heart is enlarged. Upper mediastinum is normal. Pulmonary vessels are mildly congested. Findings are not as severe as seen on previous exam. Bony structures show nothing acute. Impression: 1. Findings felt compatible with CHF as described above. Diagnostic code #3
[2020-12-17] MEDS ORDERED: Furosemide 20 MG/2 ML VIAL IVPUSH ONE (14:45)
[2020-12-17] MEDS ORDERED: Ondansetron 4 MG/2 ML SDV IV PRN (18:58)
[2020-12-17] MEDS ORDERED: Ondansetron 4 MG Tab.DIS PO PRN (18:58)
[2020-12-17] MEDS ORDERED: Docusate Sodium 100 MG Cap PO PRN (18:58)
[2020-12-17] MEDS ORDERED: Albuterol 6.7 GM Inhaler INH PRN (19:04)
--- NOTE | 2020-12-17 19:48 | PCM.HP.2 ---
H&P History of Present Illness - General Date of Service: 12/17/20 Admit Problem/Dx: Admission Diagnosis/Problem Admission Diagnosis/Problem Hypoxia Source of Information: Patient, Provider History Limitations: Reports: No Limitations - History of Present Illness Initial Comments - Free Text/Narative: Patient is a 70-year-old male with a past medical history as listed below which does include pulmonary fibrosis, congestive heart failure, diabetes mellitus and a degree of chronic kidney disease who presented to the [place] walk-in clinic earlier today because of symptoms consistent with a viral syndrome. The patient stated he started to feel unlike himself this past Tuesday. He stated that his first symptom was chills. He has had low-grade fevers just above 100 F. This has been accompanied by some myalgias and arthralgias which have gotten worse over the past couple of days. He has had a dry cough. He has had some shortness of breath however has been able to walk around his house and perform his activities of daily living without having to sit down and rest. He denies any chest pain, chest pressure or pleurisy. No nausea or vomiting. No lightheadedness or dizziness. P.o. intake has still been steady and good. No difficulties with voiding. No rash. No recent travel or known sick contacts. The patient had a full series of Pfizer vaccine in late March and April 2020. He has not had a booster. He is unaware of any known COVID-19 positive c ontacts. Upon presentation to the walk-in clinic he was found to be hypoxic and therefore he was sent to the emergency department for an immediate evaluation. He tested positive for COVID-19. X-ray was consistent more so with a congestive heart failure picture to which I agree more so than a luna pneumonitis. His hypoxia was remedied by 4 to 5 L of supplemental oxygen via nasal cannula. Luna 19 protocol began with steroids and remdesivir in the ER. Patient was then referred to the internal medicine service for ongoing treatment. A 14 point review of systems was reviewed with the patient entirely and only pertinent for the above information. CODE STATUS: Full code. - Related Data Allergies/Adverse Reactions: Allergies Allergy/AdvReac Type Severity Reaction Status Date / Time Iodinated Contrast Media Allergy Itching Verified 12/17/20 09:43 [Iodinated Contrast Media - IV Dye] Penicillins Allergy Itching Verified 12/17/20 09:43 venom-honey bee Allergy Anaphylactic Verified 12/17/20 09:43 [bee venom (honey bee)] Shock Home Medications: Home Meds Fish Oil/Clay-3 Fatty Acids [Fish Oil 1,000 MG] 1 gm PO DAILY 01/23/14 [History] Pantoprazole [Protonix] 40 mg PO DAILY 01/23/14 [History] Rosuvastatin [Crestor] 10 mg PO DAILY 01/23/14 [History] Valsartan 40 mg PO DAILY 01/23/14 [History] metFORMIN [Glucophage] 1,000 mg PO BID 01/23/14 [History] sitaGLIPtin Phosphate [Januvia] 100 mg PO DAILY 01/23/14 [History] Albuterol [Proventil HFA] 2 inhalation INH ASDIRECTED PRN 12/17/20 [History] Fluticasone/Vilanterol [Breo Ellipta 200-25 MCG Inhalation Kit] 1 inhalation INH DAILY 12/17/20 [History] Folic Acid 1 mg PO DAILY 12/17/20 [History] Thiamine [Vitamin B-1] 100 mg PO DAILY 12/17/20 [History] Torsemide [Demadex] 20 mg PO DAILY 12/17/20 [History] carvediloL [Carvedilol] 3.125 mg PO BID 12/17/20 [History] Past Medical History HEENT History: Reports: Cataract, Other (See Below) Other HEENT History: glasses Cardiovascular History: Reports: High Cholesterol Respiratory History: Reports: Other (See Below) Other Respiratory History: "lung scaring" Gastrointestinal History: Reports: GERD, Other (See Below) Other Gastrointestinal History: bleeding ulcer Endocrine/Metabolic History: Reports: Diabetes, Type II Social & Family History - Tobacco Use Tobacco Use Status *Q: Never Tobacco User - Caffeine Use Caffeine Use: Reports: Coffee - Recreational Drug Use Recreational Drug Use: No H&P Review of Systems - Review of Systems: Review Of Systems: Comprehensive ROS is negative, except as noted in HPI. Exam - Exam Exam: See Below - Vital Signs Vital Signs: Last Vital Signs Temp 97.7 F 12/17/20 09:32 Pulse 80 12/17/20 17:13 Resp 22 H 12/17/20 17:13 BP 113/75 12/17/20 17:13 Pulse Ox 93 L 12/17/20 17:13 Weight: 225 lb - Exam Physical Exam Comments:: General: Awake and alert, in no apparent distress. Mildly toxic appearing and rundown. HEENT: Normocephalic, atraumatic. Extra ocular muscles intact. Pupils equal and reactive to light. Nares are patent. Oropharynx clear without erythema or exudate. Tongue is midline. Nasal cannula. Neck: Supple without lymphadenopathy. No goiter. Trachea midline. Heart: Regular rate and rhythm. S1 and S2 heard without murmur or extrasystoles. Lungs: Rhonchorous sounds throughout with some decreased breath sounds at bases and mild rales. Abdomen: Soft, nontender, nondistended. Positive bowel sounds. No CVA tenderness. No suprapubic tenderness. Extremities: Warm and perfused. No clubbing, cyanosis, or edema. Integument: No obvious rash or jaundice. No lymphadenopathy. Tattoos. Neurologic: Cranial nerves II through XII grossly intact. No obvious gross motor or sensory deficits. Psychiatric: Normal mood and affect. - Patient Data Lab Results Last 24 hrs: Laboratory Results - last 24 hr 12/17/20 12/17/20 12/17/20 Range/Units 09:45 09:45 09:45 WBC 3.71 L (4.23-9.07) K/mm3 RBC 4.58 L (4.63-6.08) M/mm3 Hgb 14.9 (13.7-17.5) gm/dl Hct 44.5 (40.1-51.0) % MCV 97.2 H (79.0-92.2) fl MCH 32.5 H (25.7-32.2) pg MCHC 33.5 (32.2-35.5) g/dl RDW Std Deviation 49.3 H (35.1-43.9) fL Plt Count 92 L D (163-337) K/mm3 MPV 10.1 (9.4-12.3) fl Neut % (Auto) 82.0 H (34.0-67.9) % Lymph % (Auto) 7.5 L (21.8-53.1) % Graham % (Auto) 10.0 (5.3-12.2) % Eos % (Auto) 0 L (0.8-7.0) Baso % (Auto) 0.0 L (0.1-1.2) % Neut # (Auto) 3.04 (1.78-5.38) K/mm3 Lymph # (Auto) 0.28 L (1.32-3.57) K/mm3 Graham # (Auto) 0.37 (0.30-0.82) K/mm3 Eos # (Auto) 0.00 L (0.04-0.54) K/mm3 Baso # (Auto) 0.00 L (0.01-0.08) K/mm3 Manual Slide Review Abnormal smear PT 10.7 (9.7-12.0) SECONDS INR 0.96 D-Dimer, Quantitative 1.45 H (0.19-0.50) mg/L Sodium 134 L (136-145) mEq/L Potassium 4.7 (3.5-5.1) mEq/L Chloride 98 (98-107) mEq/L Carbon Dioxide 25 (21-32) mEq/L Anion Gap 15.7 H (5-15) BUN 27 H (7-18) mg/dL Creatinine 2.0 H (0.7-1.3) mg/dL Est Cr Clr Drug Dosing 24.31 mL/min Estimated GFR (MDRD) 33 (>60) mL/min BUN/Creatinine Ratio 13.5 L (14-18) Glucose 142 H (70-99) mg/dL Calcium 8.5 (8.5-10.1) mg/dL Total Bilirubin 0.5 (0.2-1.0) mg/dL AST 60 H (15-37) U/L ALT 46 (16-63) U/L Alkaline Phosphatase 49 (46-116) U/L Troponin I 0.034 (0.00-0.056) ng/mL C-Reactive Protein 7.9 H* (<1.0) mg/dL NT-Pro-B Natriuret Pep (0-125) pg/mL Total Protein 6.6 (6.4-8.2) g/dl Albumin 3.3 L (3.4-5.0) g/dl Globulin 3.3 gm/dL Albumin/Globulin Ratio 1.0 (1-2) 12/17/20 Range/Units 09:45 WBC (4.23-9.07) K/mm3 RBC (4.63-6.08) M/mm3 Hgb (13.7-17.5) gm/dl Hct (40.1-51.0) % MCV (79.0-92.2) fl MCH (25.7-32.2) pg MCHC (32.2-35.5) g/dl RDW Std Deviation (35.1-43.9) fL Plt Count (163-337) K/mm3 MPV (9.4-12.3) fl Neut % (Auto) (34.0-67.9) % Lymph % (Auto) (21.8-53.1) % Graham % (Auto) (5.3-12.2) % Eos % (Auto) (0.8-7.0) Baso % (Auto) (0.1-1.2) % Neut # (Auto) (1.78-5.38) K/mm3 Lymph # (Auto) (1.32-3.57) K/mm3 Graham # (Auto) (0.30-0.82) K/mm3 Eos # (Auto) (0.04-0.54) K/mm3 Baso # (Auto) (0.01-0.08) K/mm3 Manual Slide Review PT (9.7-12.0) SECONDS INR D-Dimer, Quantitative (0.19-0.50) mg/L Sodium (136-145) mEq/L Potassium (3.5-5.1) mEq/L Chloride (98-107) mEq/L Carbon Dioxide (21-32) mEq/L Anion Gap (5-15) BUN (7-18) mg/dL Creatinine (0.7-1.3) mg/dL Est Cr Clr Drug Dosing mL/min Estimated GFR (MDRD) (>60) mL/min BUN/Creatinine Ratio (14-18) Glucose (70-99) mg/dL Calcium (8.5-10.1) mg/dL Total Bilirubin (0.2-1.0) mg/dL AST (15-37) U/L ALT (16-63) U/L Alkaline Phosphatase (46-116) U/L Troponin I (0.00-0.056) ng/mL C-Reactive Protein (<1.0) mg/dL NT-Pro-B Natriuret Pep 2373 H (0-125) pg/mL Total Protein (6.4-8.2) g/dl Albumin (3.4-5.0) g/dl Globulin gm/dL Albumin/Globulin Ratio (1-2) Result Diagrams: 12/17/20 09:45 12/17/20 09:45 Imaging Impressions Last 24 hrs: Chest x-ray personally reviewed. Agree with formal reading. Sepsis Event Note - Evaluation Sepsis Screening Result: No Definite Risk - Focused Exam Vital Signs: Vital Signs Temp Pulse Resp BP Pulse Ox 12/17/20 17:13 80 22 H 113/75 93 L 12/17/20 14:27 89 28 H 101/64 93 L 12/17/20 12:06 92 22 H 105/68 96 12/17/20 11:48 96 23 H 112/74 93 L 12/17/20 10:49 99 16 101/88 94 L 12/17/20 09:32 97.7 F 101 H 25 H 114/69 83 L Problem List Initiated/Reviewed/Updated: Yes Orders Last 24hrs: Active Orders 24 hr Category Date Time Status Admission Diagnosis [ADT] Stat ADT 12/17/20 18:48 Ordered Admission Status [Patient Status] [ADT] Routine ADT 12/17/20 18:48 Active Cardiac Monitoring [RC] CONTINUOUS Care 12/17/20 18:59 Active Intake and Output [RC] QSHIFT Care 12/17/20 18:59 Active Oxygen Therapy [RC] PRN Care 12/17/20 18:58 Active Pulse Oximetry [RC] CONTINUOUS Care 12/17/20 18:59 Active RT Aerosol Therapy [RC] ASDIRECTED Care 12/17/20 19:01 Active RT Post Treatment Assessment [RC] Click to Edit Care 12/17/20 19:06 Active RT Pre-Treatment Assessment [RC] Click to Edit Care 12/17/20 19:06 Active Up With Assistance [RC] ASDIRECTED Care 12/17/20 18:58 Active VTE/DVT Education [RC] PER UNIT ROUTINE Care 12/17/20 18:58 Active Vital Signs [RC] Q4H Care 12/17/20 18:58 Active Respiratory Care Assess and Treatment [CONS] Routine Cons 12/17/20 19:01 Active 2 Gram Sodium Diet [DIET] Diet 12/17/20 Breakfast Active C-REACTIVE PROTEIN [CHEM] Stat Lab 12/18/20 06:00 Ordered CBC WITH AUTO DIFF [HEME] DAILY Lab 12/18/20 06:00 Ordered CBC WITH AUTO DIFF [HEME] DAILY Lab 12/19/20 06:00 Ordered CBC WITH AUTO DIFF [HEME] DAILY Lab 12/20/20 06:00 Ordered CBC WITH AUTO DIFF [HEME] Stat Lab 12/18/20 06:00 Ordered COMPREHENSIVE METABOLIC PN,CMP [CHEM] DAILY Lab 12/18/20 06:00 Ordered COMPREHENSIVE METABOLIC PN,CMP [CHEM] DAILY Lab 12/19/20 06:00 Ordered COMPREHENSIVE METABOLIC PN,CMP [CHEM] DAILY Lab 12/20/20 06:00 Ordered COMPREHENSIVE METABOLIC PN,CMP [CHEM] Stat Lab 12/18/20 06:00 Ordered Acetaminophen [TylenoL] Med 12/17/20 18:58 Active 650 mg PO Q4H PRN Albuterol [Proventil HFA] Med 12/17/20 19:04 Pending DOSE gm INH ASDIRECTED PRN Albuterol/Ipratropium [DuoNeb 3.0-0.5 MG/3 ML] Med 12/17/20 18:58 Active 3 ml NEB Q4H PRN Docusate Sodium [Colace] Med 12/17/20 18:58 Active 100 mg PO BID PRN Enoxaparin [Lovenox] Med 12/18/20 09:00 Active 30 mg SUBCUT DAILY Folic Acid Med 12/18/20 09:00 Active 1 mg PO DAILY Furosemide [Lasix] Med 12/17/20 21:00 Active 40 mg IVPUSH BID Insulin Lispro [HumaLOG] Med 12/17/20 22:00 Ordered See Protocol SUBCUT QIDACANDBED Ondansetron [Zofran ODT] Med 12/17/20 18:58 Active 4 mg PO Q4H PRN Ondansetron [Zofran] Med 12/17/20 18:58 Active 4 mg IV Q4H PRN Pantoprazole [ProTONIX] Med 12/18/20 09:00 Active 40 mg PO DAILY Remdesivir 100 mg Med 12/18/20 08:00 Active Sodium Chloride 0.9% [Normal Saline] 100 ml IV Q24H Rosuvastatin [Crestor] Med 12/18/20 09:00 Active 10 mg PO DAILY Thiamine [Vitamin B-1] Med 12/18/20 09:00 Active 100 mg PO DAILY carvediloL [Coreg] Med 12/17/20 21:00 Active 3.125 mg PO BIDMEALS methylPREDNISolone Sod Succ [Solu-MEDROL] Med 12/17/20 20:00 Active 60 mg IVPUSH Q6H Code Status [Resuscitation Status] Stat Resus Stat 12/17/20 18:53 Ordered Medication Orders Acetaminophen (Acetaminophen 325 Mg Tab) 650 mg PO Q4H PRN PRN Reason: Pain (Mild 1-3)/fever Albuterol (Albuterol 6.7 Gm Inhaler) gm INH ASDIRECTED PRN PRN Reason: Shortness of Breath Albuterol/Ipratropium (Albuterol/Ipratropium 3.0-0.5 Mg/3 Ml Neb Soln) 3 ml NEB Q4H PRN PRN Reason: Shortness Of Breath/wheezing Carvedilol (Carvedilol 3.125 Mg Tab) 3.125 mg PO BIDMEALS [facility] Docusate Sodium (Docusate Sodium 100 Mg Cap) 100 mg PO BID PRN PRN Reason: Constipation Enoxaparin Sodium (Enoxaparin 30 Mg/0.3 Ml Syringe) 30 mg SUBCUT DAILY [facility] Folic Acid (Folic Acid 1 Mg Tab) 1 mg PO DAILY [facility] Furosemide (Furosemide 40 Mg/4 Ml Vial) 40 mg IVPUSH BID [facility] Remdesivir 100 mg/ Sodium (Chloride) 100 mls @ 100 mls/hr IV Q24H [facility] Stop: 12/21/20 08:59 Insulin Human Lispro (Insulin Lispro 100 Unit/Ml 3 Ml Kwikpen) 0 unit SUBCUT QIDACANDBED [facility]; Protocol Methylprednisolone Sodium Succinate (Methylprednisolone Sodium Succinate 40 Mg/1 Ml Sdv) 60 mg IVPUSH Q6H [facility] Ondansetron HCl (Ondansetron 4 Mg Tab.Dis) 4 mg PO Q4H PRN PRN Reason: nausea, able to take PO Ondansetron HCl (Ondansetron 4 Mg/2 Ml Sdv) 4 mg IV Q4H PRN PRN Reason: Nausea/Vomiting Pantoprazole Sodium (Pantoprazole 40 Mg Tab.Cr) 40 mg PO DAILY [facility] Rosuvastatin Calcium (Rosuvastatin 10 Mg Tab) 10 mg PO DAILY [facility] Thiamine HCl (Thiamine 100 Mg Tab) 100 mg PO DAILY [facility]USSELL Assessment/Plan Comment:: 70-year-old male with a past medical history as listed above who presents to the emergency department testing luna positive and hypoxic in the nearby walk-in clinic. Referred for acute on chronic congestive heart failure, acute hypoxic respiratory failure (multifactorial). 1. Acute hypoxic respiratory failure which is multifactorial. CHF exacerbation in conjunction with acute coronavirus 19 pneumonitis. Patient to be diuresed with IV Lasix twice daily with close monitoring of volume status and weights. Limit salt and free water. Supplemental oxygen as necessary and wean as tolerated. Respiratory therapy consult. COVID-19 protocol with antivirals, high-dose Solu-Medrol 60 mg IV every 6 hours for now. Isolation. Incentive spirometry encouraged. Proning position encouraged. Echocardiogram. 2. Acute on chronic congestive heart failure. No echocardiogram on file that I can see in the EMR. Repeat study. We will try to find a previous study for comparison. Plan as above. 3. COVID-19 pneumonitis. Plan as above. If disease progresses will consider DMARD/monoclonal antibody. Hypercoagulable prophylaxis with enoxaparin. 4. Type 2 diabetes mellitus. His oral hypoglycemics will be placed on hold. The hospital hyperglycemia protocol will be invoked. 5. Pulmonary fibrosis. Continue bronchodilators. Steroids. Further plans as noted above. 6. CKD stage III-IV. Monitor volume status. Patient requires active diuresis. Daily check of chemistries. Avoid nephrotoxins. Replace electrolytes as necessary. All other medical comorbidities are stable and nonactive conditions, will continue home medications at regular dose with the exception of those changes as noted above. CODE STATUS: Full code. DVT prophylaxis with enoxaparin.
[2020-12-17] MEDS ORDERED: Furosemide 40 MG/4 ML VIAL IVPUSH SCH (21:00)
[2020-12-17] MEDS ORDERED: Benzocaine/Cetylpyridinium/Menthol Lozenge MUCMEM PRN (21:59)
[2020-12-17] MEDS: methylPREDNISolone Sodium Succinate 40 MG/1 ML SDV IVPUSH SCH (22:00)
[2020-12-17] MEDS: Carvedilol 3.125 MG Tab PO SCH (22:01)
[2020-12-17] MEDS: Insulin Lispro 100 Unit/ML 3 ML KwikPen SUBCUT SCH (22:28)
[2020-12-18] MEDS: methylPREDNISolone Sodium Succinate 40 MG/1 ML SDV IVPUSH SCH ×4 (04:16→20:30)
[2020-12-18] MEDS: Carvedilol 3.125 MG Tab PO SCH ×2 (06:38→18:01)
[2020-12-18] MEDS: Furosemide 40 MG/4 ML VIAL IVPUSH SCH ×2 (06:39→13:38)
[2020-12-18] MEDS: Albuterol/Ipratropium 3.0-0.5 MG/3 ML Neb Soln NEB PRN ×3 (07:52→21:12)
[2020-12-18] MEDS: Insulin Lispro 100 Unit/ML 3 ML KwikPen SUBCUT SCH ×5 (08:01→21:59)
[2020-12-18] MEDS: Folic Acid 1 MG Tab PO SCH (08:02)
[2020-12-18] MEDS: Pantoprazole 40 MG Tab.CR PO SCH (08:02)
[2020-12-18] MEDS: REMDESIVIR 100 MG in Sodium Chloride 0.9% 100 ML IV SCH (08:02)
[2020-12-18] MEDS: Thiamine 100 MG Tab PO SCH (08:02)
[2020-12-18] MEDS: Rosuvastatin 10 MG Tab PO SCH (08:02)
--- NOTE | 2020-12-18 08:37 | PCM.PN ---
- General Info Date of Service: 12/18/20 Admission Dx/Problem (Free Text): Admission Diagnosis/Problem Admission Diagnosis/Problem Hypoxia Subjective Update: No acute events overnight since being admitted. O2 demand has increased to 6 L Patient states that he had an okay night. Denies any worsening of condition. Denies any chest pain, chest pressure or pleurisy. Does not feel short of breath. Does not feel an increased work of breathing. No fever or other constitutional symptoms. Feels otherwise just rundown. - Patient Data Vitals - Most Recent: Last Vital Signs Temp 97.9 F 12/18/20 07:15 Pulse 81 12/18/20 07:15 Resp 32 H 12/18/20 07:15 BP 115/75 12/18/20 07:15 Pulse Ox 90 L 12/18/20 08:26 Weight - Most Recent: 213 lb 14.4 oz I&O - Last 24 Hours: Intake & Output 12/17/20 12/18/20 12/18/20 22:59 06:59 14:59 Intake Total 250 Output Total 950 Balance -700 Lab Results Last 24 Hours: Laboratory Results - last 24 hr 12/17/20 12/17/20 12/17/20 Range/Units 09:45 09:45 09:45 WBC 3.71 L (4.23-9.07) K/mm3 RBC 4.58 L (4.63-6.08) M/mm3 Hgb 14.9 (13.7-17.5) gm/dl Hct 44.5 (40.1-51.0) % MCV 97.2 H (79.0-92.2) fl MCH 32.5 H (25.7-32.2) pg MCHC 33.5 (32.2-35.5) g/dl RDW Std Deviation 49.3 H (35.1-43.9) fL Plt Count 92 L D (163-337) K/mm3 MPV 10.1 (9.4-12.3) fl Neut % (Auto) 82.0 H (34.0-67.9) % Lymph % (Auto) 7.5 L (21.8-53.1) % [place] % (Auto) 10.0 (5.3-12.2) % Eos % (Auto) 0 L (0.8-7.0) Baso % (Auto) 0.0 L (0.1-1.2) % Neut # (Auto) 3.04 (1.78-5.38) K/mm3 Lymph # (Auto) 0.28 L (1.32-3.57) K/mm3 [place] # (Auto) 0.37 (0.30-0.82) K/mm3 Eos # (Auto) 0.00 L (0.04-0.54) K/mm3 Baso # (Auto) 0.00 L (0.01-0.08) K/mm3 Manual Slide Review Abnormal smear PT 10.7 (9.7-12.0) SECONDS INR 0.96 D-Dimer, Quantitative 1.45 H (0.19-0.50) mg/L Sodium 134 L (136-145) mEq/L Potassium 4.7 (3.5-5.1) mEq/L Chloride 98 (98-107) mEq/L Carbon Dioxide 25 (21-32) mEq/L Anion Gap 15.7 H (5-15) BUN 27 H (7-18) mg/dL Creatinine 2.0 H (0.7-1.3) mg/dL Est Cr Clr Drug Dosing 24.31 mL/min Estimated GFR (MDRD) 33 (>60) mL/min BUN/Creatinine Ratio 13.5 L (14-18) Glucose 142 H (70-99) mg/dL POC Glucose (70-99) mg/dL Calcium 8.5 (8.5-10.1) mg/dL Total Bilirubin 0.5 (0.2-1.0) mg/dL AST 60 H (15-37) U/L ALT 46 (16-63) U/L Alkaline Phosphatase 49 (46-116) U/L Troponin I 0.034 (0.00-0.056) ng/mL C-Reactive Protein 7.9 H* (<1.0) mg/dL NT-Pro-B Natriuret Pep (0-125) pg/mL Total Protein 6.6 (6.4-8.2) g/dl Albumin 3.3 L (3.4-5.0) g/dl Globulin 3.3 gm/dL Albumin/Globulin Ratio 1.0 (1-2) 12/17/20 12/17/20 12/18/20 Range/Units 09:45 22:14 04:50 WBC 2.38 L* (4.23-9.07) K/mm3 RBC 4.49 L (4.63-6.08) M/mm3 Hgb 14.5 (13.7-17.5) gm/dl Hct 43.3 (40.1-51.0) % MCV 96.4 H (79.0-92.2) fl MCH 32.3 H (25.7-32.2) pg MCHC 33.5 (32.2-35.5) g/dl RDW Std Deviation 48.0 H (35.1-43.9) fL Plt Count 81 L (163-337) K/mm3 MPV 10.9 (9.4-12.3) fl Neut % (Auto) 84.5 H (34.0-67.9) % Lymph % (Auto) 8.8 L (21.8-53.1) % [place] % (Auto) 6.7 (5.3-12.2) % Eos % (Auto) 0 L (0.8-7.0) Baso % (Auto) 0.0 L (0.1-1.2) % Neut # (Auto) 2.01 (1.78-5.38) K/mm3 Lymph # (Auto) 0.21 L (1.32-3.57) K/mm3 [place] # (Auto) 0.16 L (0.30-0.82) K/mm3 Eos # (Auto) 0.00 L (0.04-0.54) K/mm3 Baso # (Auto) 0.00 L (0.01-0.08) K/mm3 Manual Slide Review Abnormal smear PT (9.7-12.0) SECONDS INR D-Dimer, Quantitative (0.19-0.50) mg/L Sodium (136-145) mEq/L Potassium (3.5-5.1) mEq/L Chloride (98-107) mEq/L Carbon Dioxide (21-32) mEq/L Anion Gap (5-15) BUN (7-18) mg/dL Creatinine (0.7-1.3) mg/dL Est Cr Clr Drug Dosing mL/min Estimated GFR (MDRD) (>60) mL/min BUN/Creatinine Ratio (14-18) Glucose (70-99) mg/dL POC Glucose 303 H (70-99) mg/dL Calcium (8.5-10.1) mg/dL Total Bilirubin (0.2-1.0) mg/dL AST (15-37) U/L ALT (16-63) U/L Alkaline Phosphatase (46-116) U/L Troponin I (0.00-0.056) ng/mL C-Reactive Protein (<1.0) mg/dL NT-Pro-B Natriuret Pep 2373 H (0-125) pg/mL Total Protein (6.4-8.2) g/dl Albumin (3.4-5.0) g/dl Globulin gm/dL Albumin/Globulin Ratio (1-2) 12/18/20 12/18/20 Range/Units 04:50 06:36 WBC (4.23-9.07) K/mm3 RBC (4.63-6.08) M/mm3 Hgb (13.7-17.5) gm/dl Hct (40.1-51.0) % MCV (79.0-92.2) fl MCH (25.7-32.2) pg MCHC (32.2-35.5) g/dl RDW Std Deviation (35.1-43.9) fL Plt Count (163-337) K/mm3 MPV (9.4-12.3) fl Neut % (Auto) (34.0-67.9) % Lymph % (Auto) (21.8-53.1) % [place] % (Auto) (5.3-12.2) % Eos % (Auto) (0.8-7.0) Baso % (Auto) (0.1-1.2) % Neut # (Auto) (1.78-5.38) K/mm3 Lymph # (Auto) (1.32-3.57) K/mm3 [place] # (Auto) (0.30-0.82) K/mm3 Eos # (Auto) (0.04-0.54) K/mm3 Baso # (Auto) (0.01-0.08) K/mm3 Manual Slide Review PT (9.7-12.0) SECONDS INR D-Dimer, Quantitative (0.19-0.50) mg/L Sodium 135 L (136-145) mEq/L Potassium 4.9 (3.5-5.1) mEq/L Chloride 101 (98-107) mEq/L Carbon Dioxide 23 (21-32) mEq/L Anion Gap 15.9 H (5-15) BUN 42 H (7-18) mg/dL Creatinine 2.0 H (0.7-1.3) mg/dL Est Cr Clr Drug Dosing 35.49 mL/min Estimated GFR (MDRD) 33 (>60) mL/min BUN/Creatinine Ratio 21.0 H (14-18) Glucose 295 H (70-99) mg/dL POC Glucose 297 H (70-99) mg/dL Calcium 8.4 L (8.5-10.1) mg/dL Total Bilirubin 0.3 (0.2-1.0) mg/dL AST 61 H (15-37) U/L ALT 49 (16-63) U/L Alkaline Phosphatase 46 (46-116) U/L Troponin I (0.00-0.056) ng/mL C-Reactive Protein 11.6 H* (<1.0) mg/dL NT-Pro-B Natriuret Pep (0-125) pg/mL Total Protein 6.2 L (6.4-8.2) g/dl Albumin 2.9 L (3.4-5.0) g/dl Globulin 3.3 gm/dL Albumin/Globulin Ratio 0.9 L (1-2) Med Orders - Current: Current Medications Acetaminophen (Acetaminophen 325 Mg Tab) 650 mg PO Q4H PRN PRN Reason: Pain (Mild 1-3)/fever Albuterol (Albuterol 6.7 Gm Inhaler) 0 gm INH Q4H PRN PRN Reason: Shortness of Breath Albuterol/Ipratropium (Albuterol/Ipratropium 3.0-0.5 Mg/3 Ml Neb Soln) 3 ml NEB Q4H PRN PRN Reason: Shortness Of Breath/wheezing Last Admin: 12/18/20 07:52 Dose: 3 ml Documented by: Benzocaine/Menthol (Benzocaine/Cetylpyridinium/Menthol Lozenge) 1 lozenge MUCMEM Q2H PRN PRN Reason: Sore Throat Last Admin: 12/17/20 22:29 Dose: 1 lozenge Documented by: Carvedilol (Carvedilol 3.125 Mg Tab) 3.125 mg PO BIDMEALS [facility] Last Admin: 12/18/20 06:38 Dose: 3.125 mg Documented by: Docusate Sodium (Docusate Sodium 100 Mg Cap) 100 mg PO BID PRN PRN Reason: Constipation Enoxaparin Sodium (Enoxaparin 30 Mg/0.3 Ml Syringe) 30 mg SUBCUT DAILY [facility] Folic Acid (Folic Acid 1 Mg Tab) 1 mg PO DAILY [facility] Last Admin: 12/18/20 08:02 Dose: 1 mg Documented by: Furosemide (Furosemide 40 Mg/4 Ml Vial) 40 mg IVPUSH BIDDIURETIC [facility] Last Admin: 12/18/20 06:39 Dose: 40 mg Documented by: Remdesivir 100 mg/ Sodium (Chloride) 100 mls @ 100 mls/hr IV Q24H [facility] Stop: 12/21/20 08:59 Last Admin: 12/18/20 08:02 Dose: 100 mls/hr Documented by: Insulin Human Lispro (Insulin Lispro 100 Unit/Ml 3 Ml Kwikpen) 0 unit SUBCUT QIDACANDBED [facility]; Protocol Last Admin: 12/18/20 08:01 Dose: 6 unit Documented by: Methylprednisolone Sodium Succinate (Methylprednisolone Sodium Succinate 40 Mg/1 Ml Sdv) 60 mg IVPUSH Q6H [facility] Last Admin: 12/18/20 08:10 Dose: 60 mg Documented by: Ondansetron HCl (Ondansetron 4 Mg Tab.Dis) 4 mg PO Q4H PRN PRN Reason: nausea, able to take PO Ondansetron HCl (Ondansetron 4 Mg/2 Ml Sdv) 4 mg IV Q4H PRN PRN Reason: Nausea/Vomiting Pantoprazole Sodium (Pantoprazole 40 Mg Tab.Cr) 40 mg PO DAILY [facility] Last Admin: 12/18/20 08:02 Dose: 40 mg Documented by: Rosuvastatin Calcium (Rosuvastatin 10 Mg Tab) 10 mg PO DAILY [facility] Last Admin: 12/18/20 08:02 Dose: 10 mg Documented by: Thiamine HCl (Thiamine 100 Mg Tab) 100 mg PO DAILY [facility] Last Admin: 12/18/20 08:02 Dose: 100 mg Documented by: Discontinued Medications Dexamethasone (Dexamethasone 4 Mg/Ml Sdv) 6 mg IVPUSH ONETIME ONE Stop: 12/17/20 10:51 Last Admin: 12/17/20 11:05 Dose: 6 mg Documented by: Furosemide (Furosemide 20 Mg/2 Ml Vial) 20 mg IVPUSH ONETIME ONE Stop: 12/17/20 14:46 Last Admin: 12/17/20 15:07 Dose: 20 mg Documented by: Furosemide (Furosemide 40 Mg/4 Ml Vial) 40 mg IVPUSH BID [facility] Last Admin: 12/17/20 22:01 Dose: 40 mg Documented by: Remdesivir 200 mg/ Sodium (Chloride) 250 mls @ 250 mls/hr IV ONETIME ONE Stop: 12/17/20 12:29 Last Admin: 12/17/20 11:45 Dose: 250 mls/hr Documented by: - Exam Quality Assessment: Supplemental Oxygen General: Alert, Cooperative, No Acute Distress Lungs: Decreased Breath Sounds (Otherwise clear with cough) Cardiovascular: Regular Rate GI/Abdominal Exam: Normal Bowel Sounds, Soft, Non-Tender Extremities: Normal Inspection Skin: Warm, Dry - Patient Data Lab Results Last 24 hrs: Laboratory Results - last 24 hr 12/17/20 12/17/20 12/17/20 Range/Units 09:45 09:45 09:45 WBC 3.71 L (4.23-9.07) K/mm3 RBC 4.58 L (4.63-6.08) M/mm3 Hgb 14.9 (13.7-17.5) gm/dl Hct 44.5 (40.1-51.0) % MCV 97.2 H (79.0-92.2) fl MCH 32.5 H (25.7-32.2) pg MCHC 33.5 (32.2-35.5) g/dl RDW Std Deviation 49.3 H (35.1-43.9) fL Plt Count 92 L D (163-337) K/mm3 MPV 10.1 (9.4-12.3) fl Neut % (Auto) 82.0 H (34.0-67.9) % Lymph % (Auto) 7.5 L (21.8-53.1) % [place] % (Auto) 10.0 (5.3-12.2) % Eos % (Auto) 0 L (0.8-7.0) Baso % (Auto) 0.0 L (0.1-1.2) % Neut # (Auto) 3.04 (1.78-5.38) K/mm3 Lymph # (Auto) 0.28 L (1.32-3.57) K/mm3 [place] # (Auto) 0.37 (0.30-0.82) K/mm3 Eos # (Auto) 0.00 L (0.04-0.54) K/mm3 Baso # (Auto) 0.00 L (0.01-0.08) K/mm3 Manual Slide Review Abnormal smear PT 10.7 (9.7-12.0) SECONDS INR 0.96 D-Dimer, Quantitative 1.45 H (0.19-0.50) mg/L Sodium 134 L (136-145) mEq/L Potassium 4.7 (3.5-5.1) mEq/L Chloride 98 (98-107) mEq/L Carbon Dioxide 25 (21-32) mEq/L Anion Gap 15.7 H (5-15) BUN 27 H (7-18) mg/dL Creatinine 2.0 H (0.7-1.3) mg/dL Est Cr Clr Drug Dosing 24.31 mL/min Estimated GFR (MDRD) 33 (>60) mL/min BUN/Creatinine Ratio 13.5 L (14-18) Glucose 142 H (70-99) mg/dL POC Glucose (70-99) mg/dL Calcium 8.5 (8.5-10.1) mg/dL Total Bilirubin 0.5 (0.2-1.0) mg/dL AST 60 H (15-37) U/L ALT 46 (16-63) U/L Alkaline Phosphatase 49 (46-116) U/L Troponin I 0.034 (0.00-0.056) ng/mL C-Reactive Protein 7.9 H* (<1.0) mg/dL NT-Pro-B Natriuret Pep (0-125) pg/mL Total Protein 6.6 (6.4-8.2) g/dl Albumin 3.3 L (3.4-5.0) g/dl Globulin 3.3 gm/dL Albumin/Globulin Ratio 1.0 (1-2) 11/10/21 11/10/21 11/11/21 Range/Units 09:45 22:14 04:50 WBC 2.38 L* (4.23-9.07) K/mm3 RBC 4.49 L (4.63-6.08) M/mm3 Hgb 14.5 (13.7-17.5) gm/dl Hct 43.3 (40.1-51.0) % MCV 96.4 H (79.0-92.2) fl MCH 32.3 H (25.7-32.2) pg MCHC 33.5 (32.2-35.5) g/dl RDW Std Deviation 48.0 H (35.1-43.9) fL Plt Count 81 L (163-337) K/mm3 MPV 10.9 (9.4-12.3) fl Neut % (Auto) 84.5 H (34.0-67.9) % Lymph % (Auto) 8.8 L (21.8-53.1) % [place] % (Auto) 6.7 (5.3-12.2) % Eos % (Auto) 0 L (0.8-7.0) Baso % (Auto) 0.0 L (0.1-1.2) % Neut # (Auto) 2.01 (1.78-5.38) K/mm3 Lymph # (Auto) 0.21 L (1.32-3.57) K/mm3 [place] # (Auto) 0.16 L (0.30-0.82) K/mm3 Eos # (Auto) 0.00 L (0.04-0.54) K/mm3 Baso # (Auto) 0.00 L (0.01-0.08) K/mm3 Manual Slide Review Abnormal smear PT (9.7-12.0) SECONDS INR D-Dimer, Quantitative (0.19-0.50) mg/L Sodium (136-145) mEq/L Potassium (3.5-5.1) mEq/L Chloride (98-107) mEq/L Carbon Dioxide (21-32) mEq/L Anion Gap (5-15) BUN (7-18) mg/dL Creatinine (0.7-1.3) mg/dL Est Cr Clr Drug Dosing mL/min Estimated GFR (MDRD) (>60) mL/min BUN/Creatinine Ratio (14-18) Glucose (70-99) mg/dL POC Glucose 303 H (70-99) mg/dL Calcium (8.5-10.1) mg/dL Total Bilirubin (0.2-1.0) mg/dL AST (15-37) U/L ALT (16-63) U/L Alkaline Phosphatase (46-116) U/L Troponin I (0.00-0.056) ng/mL C-Reactive Protein (<1.0) mg/dL NT-Pro-B Natriuret Pep 2373 H (0-125) pg/mL Total Protein (6.4-8.2) g/dl Albumin (3.4-5.0) g/dl Globulin gm/dL Albumin/Globulin Ratio (1-2) 12/18/20 12/18/20 Range/Units 04:50 06:36 WBC (4.23-9.07) K/mm3 RBC (4.63-6.08) M/mm3 Hgb (13.7-17.5) gm/dl Hct (40.1-51.0) % MCV (79.0-92.2) fl MCH (25.7-32.2) pg MCHC (32.2-35.5) g/dl RDW Std Deviation (35.1-43.9) fL Plt Count (163-337) K/mm3 MPV (9.4-12.3) fl Neut % (Auto) (34.0-67.9) % Lymph % (Auto) (21.8-53.1) % [place] % (Auto) (5.3-12.2) % Eos % (Auto) (0.8-7.0) Baso % (Auto) (0.1-1.2) % Neut # (Auto) (1.78-5.38) K/mm3 Lymph # (Auto) (1.32-3.57) K/mm3 [place] # (Auto) (0.30-0.82) K/mm3 Eos # (Auto) (0.04-0.54) K/mm3 Baso # (Auto) (0.01-0.08) K/mm3 Manual Slide Review PT (9.7-12.0) SECONDS INR D-Dimer, Quantitative (0.19-0.50) mg/L Sodium 135 L (136-145) mEq/L Potassium 4.9 (3.5-5.1) mEq/L Chloride 101 (98-107) mEq/L Carbon Dioxide 23 (21-32) mEq/L Anion Gap 15.9 H (5-15) BUN 42 H (7-18) mg/dL Creatinine 2.0 H (0.7-1.3) mg/dL Est Cr Clr Drug Dosing 35.49 mL/min Estimated GFR (MDRD) 33 (>60) mL/min BUN/Creatinine Ratio 21.0 H (14-18) Glucose 295 H (70-99) mg/dL POC Glucose 297 H (70-99) mg/dL Calcium 8.4 L (8.5-10.1) mg/dL Total Bilirubin 0.3 (0.2-1.0) mg/dL AST 61 H (15-37) U/L ALT 49 (16-63) U/L Alkaline Phosphatase 46 (46-116) U/L Troponin I (0.00-0.056) ng/mL C-Reactive Protein 11.6 H* (<1.0) mg/dL NT-Pro-B Natriuret Pep (0-125) pg/mL Total Protein 6.2 L (6.4-8.2) g/dl Albumin 2.9 L (3.4-5.0) g/dl Globulin 3.3 gm/dL Albumin/Globulin Ratio 0.9 L (1-2) Result Diagrams: 12/18/20 04:50 12/18/20 04:50 Sepsis Event Note - Evaluation Sepsis Screening Result: No Definite Risk - Focused Exam Vital Signs: Vital Signs Temp Pulse Resp BP Pulse Ox Pulse Ox Pulse Ox 12/18/20 08:26 90 L 12/18/20 07:15 97.9 F 81 32 H 115/75 88 L 12/18/20 07:00 85 L 12/18/20 06:50 83 L 12/18/20 06:38 76 118/74 12/18/20 04:15 98.2 F 75 30 H 131/98 H 87 L 12/18/20 01:26 98.6 F 77 32 H 100/62 91 L 12/17/20 22:01 79 119/74 12/17/20 21:14 97.9 F 79 22 H 119/74 93 L - Problem List Review Problem List Initiated/Reviewed/Updated: Yes - My Orders Last 24 Hours: My Active Orders 12/17/20 18:58 Oxygen Therapy [RC] PRN Up With Assistance [RC] ASDIRECTED VTE/DVT Education [RC] DAILY Vital Signs [RC] Q4HR Acetaminophen [TylenoL] 650 mg PO Q4H PRN Albuterol/Ipratropium [DuoNeb 3.0-0.5 MG/3 ML] 3 ml NEB Q4H PRN Docusate Sodium [Colace] 100 mg PO BID PRN Ondansetron [Zofran ODT] 4 mg PO Q4H PRN Ondansetron [Zofran] 4 mg IV Q4H PRN 12/17/20 18:59 Cardiac Monitoring [RC] CONTINUOUS Intake and Output [RC] 04,16 Pulse Oximetry [RC] CONTINUOUS 12/17/20 19:01 RT Aerosol Therapy [RC] ASDIRECTED Respiratory Care Assess and Treatment [CONS] Routine 12/17/20 19:04 Albuterol [Proventil HFA] 0 gm INH Q4H PRN 12/17/20 20:00 methylPREDNISolone Sod Succ [Solu-MEDROL] 60 mg IVPUSH Q6H 12/17/20 21:00 carvediloL [Coreg] 3.125 mg PO BIDMEALS 12/17/20 21:59 Benzocaine/Cetylpyrd/Menthol [Cepacol Sore Throat] 1 lozenge MUCMEM Q2H PRN 12/17/20 22:00 Insulin Lispro [HumaLOG] See Protocol SUBCUT QIDACANDBED 12/17/20 23:36 Patient Status [ADT] Routine 12/18/20 06:00 Furosemide [Lasix] 40 mg IVPUSH BIDDIURETIC 12/18/20 07:26 Blood Glucose Check, Bedside [RC] QIDACANDBED 12/18/20 08:26 RT Chest Physiotherapy [RC] ASDIRECTED 12/18/20 09:00 Enoxaparin [Lovenox] 30 mg SUBCUT DAILY Folic Acid 1 mg PO DAILY Pantoprazole [ProTONIX] 40 mg PO DAILY Rosuvastatin [Crestor] 10 mg PO DAILY Thiamine [Vitamin B-1] 100 mg PO DAILY 12/19/20 06:00 CBC WITH AUTO DIFF [HEME] DAILY COMPREHENSIVE METABOLIC PN,CMP [CHEM] DAILY 12/20/20 06:00 CBC WITH AUTO DIFF [HEME] DAILY COMPREHENSIVE METABOLIC PN,CMP [CHEM] DAILY - Plan Plan:: 70-year-old male with a past medical history as listed above who presents to the emergency department testing luna positive and hypoxic in the nearby walk-in clinic. Referred for acute on chronic congestive heart failure, acute hypoxic respiratory failure (multifactorial). 1. Acute hypoxic respiratory failure which is multifactorial. CHF exacerbation in conjunction with acute coronavirus 19 pneumonitis. Patient to be diuresed with IV Lasix twice daily with close monitoring of volume status and weights. Limit salt and free water. Supplemental oxygen as necessary and wean or advance as tolerated. Respiratory therapy consult. COVID-19 protocol with antivirals, high-dose Solu-Medrol 60 mg IV every 6 hours for now. Isolation. Incentive spirometry encouraged. Proning position encouraged. Echocardiogram. 2. Acute on chronic congestive heart failure. No echocardiogram on file that I can see in the EMR. Repeat study. We will try to find a previous study for comparison. Plan as above. 3. COVID-19 pneumonitis. Plan as above. If disease progresses will consider DMARD/monoclonal antibody. Hypercoagulable prophylaxis with enoxaparin. 4. Type 2 diabetes mellitus. His oral hypoglycemics will be placed on hold. The hospital hyperglycemia protocol will be invoked. 5. Pulmonary fibrosis. Continue bronchodilators. Steroids. Further plans as noted above. 6. CKD stage III-IV. Monitor volume status. Patient requires active diuresis. Daily check of chemistries. Avoid nephrotoxins. Replace electrolytes as necessary. All other medical comorbidities are stable and nonactive conditions, will continue home medications at regular dose with the exception of those changes as noted above. CODE STATUS: Full code. DVT prophylaxis with enoxaparin.
[2020-12-18] MEDS ORDERED: Enoxaparin 30 MG/0.3 ML Syringe SUBCUT SCH (09:00)
[2020-12-18] MEDS: Acetaminophen 325 MG Tab PO PRN (10:43)
[2020-12-18] MEDS: Enoxaparin 30 MG/0.3 ML Syringe SUBCUT SCH (10:44)
[2020-12-19] MEDS: methylPREDNISolone Sodium Succinate 40 MG/1 ML SDV IVPUSH SCH ×3 (01:34→12:03)
[2020-12-19] MEDS: Albuterol/Ipratropium 3.0-0.5 MG/3 ML Neb Soln NEB PRN ×3 (05:10→21:30)
[2020-12-19] MEDS: Furosemide 40 MG/4 ML VIAL IVPUSH SCH ×2 (06:12→15:09)
--- NOTE | 2020-12-19 07:19 | PCM.PN ---
- General Info Date of Service: 12/19/20 Admission Dx/Problem (Free Text): Admission Diagnosis/Problem Admission Diagnosis/Problem Hypoxia Subjective Update: Acute events overnight include significant worsening of hypoxic respiratory failure. Now maxed out on high flow at liters per minute and 100% FiO2 with supplemental nonrebreather over it. Patient states that he denies any chest pain, chest pressure or pleurisy. No nausea or vomiting. No fever or other constitutional symptoms. Only proned for 20 minutes overnight. Called to come in just before 6 AM concerning his worsening of respiratory failure by nursing staff. Patient seen and examined 30 minutes later personally. - Patient Data Vitals - Most Recent: Last Vital Signs Temp 97.5 F 12/19/20 04:35 Pulse 73 12/19/20 04:35 Resp 28 H 12/19/20 04:35 BP 99/53 L 12/19/20 04:35 Pulse Ox 92 L 12/19/20 06:50 Weight - Most Recent: 214 lb 14.4 oz I&O - Last 24 Hours: Intake & Output 12/18/20 12/19/20 12/19/20 22:59 06:59 14:59 Intake Total 1920 600 Output Total 1075 1075 Balance 845 -475 Lab Results Last 24 Hours: Laboratory Results - last 24 hr 12/18/20 12/18/20 12/18/20 Range/Units 11:40 11:55 17:30 WBC (4.23-9.07) K/mm3 RBC (4.63-6.08) M/mm3 Hgb (13.7-17.5) gm/dl Hct (40.1-51.0) % MCV (79.0-92.2) fl MCH (25.7-32.2) pg MCHC (32.2-35.5) g/dl RDW Std Deviation (35.1-43.9) fL Plt Count (163-337) K/mm3 MPV (9.4-12.3) fl Neut % (Auto) (34.0-67.9) % Lymph % (Auto) (21.8-53.1) % [place] % (Auto) (5.3-12.2) % Eos % (Auto) (0.8-7.0) Baso % (Auto) (0.1-1.2) % Neut # (Auto) (1.78-5.38) K/mm3 Lymph # (Auto) (1.32-3.57) K/mm3 [place] # (Auto) (0.30-0.82) K/mm3 Eos # (Auto) (0.04-0.54) K/mm3 Baso # (Auto) (0.01-0.08) K/mm3 Manual Slide Review Puncture Site ABG pH (7.35-7.45) ABG pCO2 (35.0-45.0) mmHg ABG pO2 (80.0-100.0) mmHg ABG HCO3 (22.0-26.0) meq/L ABG O2 Saturation (96.0-97.0) % ABG Base Excess (-2-2.0) A-a Gradient mmHg O2 Delivery Device Oxygen Flow Rate FiO2 (21.00-100.00) % Blood Gas Comments Glucose 517 H* (70-99) mg/dL POC Glucose 470 H* 444 H* (70-99) mg/dL 12/18/20 12/18/20 12/19/20 Range/Units 17:34 20:27 06:26 WBC (4.23-9.07) K/mm3 RBC (4.63-6.08) M/mm3 Hgb (13.7-17.5) gm/dl Hct (40.1-51.0) % MCV (79.0-92.2) fl MCH (25.7-32.2) pg MCHC (32.2-35.5) g/dl RDW Std Deviation (35.1-43.9) fL Plt Count (163-337) K/mm3 MPV (9.4-12.3) fl Neut % (Auto) (34.0-67.9) % Lymph % (Auto) (21.8-53.1) % [place] % (Auto) (5.3-12.2) % Eos % (Auto) (0.8-7.0) Baso % (Auto) (0.1-1.2) % Neut # (Auto) (1.78-5.38) K/mm3 Lymph # (Auto) (1.32-3.57) K/mm3 [place] # (Auto) (0.30-0.82) K/mm3 Eos # (Auto) (0.04-0.54) K/mm3 Baso # (Auto) (0.01-0.08) K/mm3 Manual Slide Review Puncture Site Lt radial ABG pH 7.39 (7.35-7.45) ABG pCO2 35.9 (35.0-45.0) mmHg ABG pO2 65.0 L (80.0-100.0) mmHg ABG HCO3 21.3 L (22.0-26.0) meq/L ABG O2 Saturation 91.7 L (96.0-97.0) % ABG Base Excess -2.5 L (-2-2.0) A-a Gradient 604 mmHg O2 Delivery Device Hiflow nasal cannula Oxygen Flow Rate 60.0 FiO2 100.00 (21.00-100.00) % Blood Gas Comments W/ nrb Glucose (70-99) mg/dL POC Glucose 438 H* 386 H (70-99) mg/dL 12/19/20 Range/Units 06:32 WBC 4.87 (4.23-9.07) K/mm3 RBC 4.53 L (4.63-6.08) M/mm3 Hgb 14.9 (13.7-17.5) gm/dl Hct 42.8 (40.1-51.0) % MCV 94.5 H (79.0-92.2) fl MCH 32.9 H (25.7-32.2) pg MCHC 34.8 (32.2-35.5) g/dl RDW Std Deviation 45.9 H (35.1-43.9) fL Plt Count 85 L (163-337) K/mm3 MPV 10.7 (9.4-12.3) fl Neut % (Auto) 90.8 H (34.0-67.9) % Lymph % (Auto) 3.3 L (21.8-53.1) % [place] % (Auto) 5.7 (5.3-12.2) % Eos % (Auto) 0 L (0.8-7.0) Baso % (Auto) 0.0 L (0.1-1.2) % Neut # (Auto) 4.42 (1.78-5.38) K/mm3 Lymph # (Auto) 0.16 L (1.32-3.57) K/mm3 [place] # (Auto) 0.28 L (0.30-0.82) K/mm3 Eos # (Auto) 0.00 L (0.04-0.54) K/mm3 Baso # (Auto) 0.00 L (0.01-0.08) K/mm3 Manual Slide Review Abnormal smear Puncture Site ABG pH (7.35-7.45) ABG pCO2 (35.0-45.0) mmHg ABG pO2 (80.0-100.0) mmHg ABG HCO3 (22.0-26.0) meq/L ABG O2 Saturation (96.0-97.0) % ABG Base Excess (-2-2.0) A-a Gradient mmHg O2 Delivery Device Oxygen Flow Rate FiO2 (21.00-100.00) % Blood Gas Comments Glucose (70-99) mg/dL POC Glucose (70-99) mg/dL Med Orders - Current: Current Medications Acetaminophen (Acetaminophen 325 Mg Tab) 650 mg PO Q4H PRN PRN Reason: Pain (Mild 1-3)/fever Last Admin: 12/18/20 10:43 Dose: 650 mg Documented by: Albuterol (Albuterol 6.7 Gm Inhaler) 0 gm INH Q4H PRN PRN Reason: Shortness of Breath Albuterol/Ipratropium (Albuterol/Ipratropium 3.0-0.5 Mg/3 Ml Neb Soln) 3 ml NEB Q4H PRN PRN Reason: Shortness Of Breath/wheezing Last Admin: 12/19/20 05:10 Dose: 3 ml Documented by: Benzocaine/Menthol (Benzocaine/Cetylpyridinium/Menthol Lozenge) 1 lozenge MUCMEM Q2H PRN PRN Reason: Sore Throat Last Admin: 12/17/20 22:29 Dose: 1 lozenge Documented by: Carvedilol (Carvedilol 3.125 Mg Tab) 3.125 mg PO BIDMEALS RUSSELL Last Admin: 12/18/20 18:01 Dose: 3.125 mg Documented by: Docusate Sodium (Docusate Sodium 100 Mg Cap) 100 mg PO BID PRN PRN Reason: Constipation Enoxaparin Sodium (Enoxaparin 30 Mg/0.3 Ml Syringe) 30 mg SUBCUT DAILY [facility] Last Admin: 12/18/20 10:44 Dose: 30 mg Documented by: Folic Acid (Folic Acid 1 Mg Tab) 1 mg PO DAILY [facility] Last Admin: 12/18/20 08:02 Dose: 1 mg Documented by: Furosemide (Furosemide 40 Mg/4 Ml Vial) 40 mg IVPUSH BIDDIURETIC [facility] Last Admin: 12/19/20 06:12 Dose: 40 mg Documented by: Remdesivir 100 mg/ Sodium (Chloride) 100 mls @ 100 mls/hr IV Q24H [facility] Stop: 12/21/20 08:59 Last Admin: 12/18/20 08:02 Dose: 100 mls/hr Documented by: Insulin Human Lispro (Insulin Lispro 100 Unit/Ml 3 Ml Kwikpen) 0 unit SUBCUT QIDACANDBED [facility]; Protocol Last Admin: 12/18/20 21:59 Dose: Not Given Documented by: Insulin Human Lispro (Insulin Lispro 100 Unit/Ml 3 Ml Kwikpen) 5 unit SUBCUT TIDAC [facility] Methylprednisolone Sodium Succinate (Methylprednisolone Sodium Succinate 40 Mg/1 Ml Sdv) 80 mg IVPUSH Q6H [facility] Last Admin: 12/19/20 06:15 Dose: 80 mg Documented by: Ondansetron HCl (Ondansetron 4 Mg Tab.Dis) 4 mg PO Q4H PRN PRN Reason: nausea, able to take PO Ondansetron HCl (Ondansetron 4 Mg/2 Ml Sdv) 4 mg IV Q4H PRN PRN Reason: Nausea/Vomiting Pantoprazole Sodium (Pantoprazole 40 Mg Tab.Cr) 40 mg PO DAILY [facility] Last Admin: 12/18/20 08:02 Dose: 40 mg Documented by: Rosuvastatin Calcium (Rosuvastatin 10 Mg Tab) 10 mg PO DAILY [facility] Last Admin: 12/18/20 08:02 Dose: 10 mg Documented by: Thiamine HCl (Thiamine 100 Mg Tab) 100 mg PO DAILY [facility] Last Admin: 12/18/20 08:02 Dose: 100 mg Documented by: Discontinued Medications Dexamethasone (Dexamethasone 4 Mg/Ml Sdv) 6 mg IVPUSH ONETIME ONE Stop: 12/17/20 10:51 Last Admin: 12/17/20 11:05 Dose: 6 mg Documented by: Enoxaparin Sodium (Enoxaparin 30 Mg/0.3 Ml Syringe) 30 mg SUBCUT DAILY [facility] Stop: 12/18/20 11:00 Last Admin: 12/18/20 17:04 Dose: Not Given Documented by: Furosemide (Furosemide 20 Mg/2 Ml Vial) 20 mg IVPUSH ONETIME ONE Stop: 12/17/20 14:46 Last Admin: 12/17/20 15:07 Dose: 20 mg Documented by: Furosemide (Furosemide 40 Mg/4 Ml Vial) 40 mg IVPUSH BID [facility] Last Admin: 12/17/20 22:01 Dose: 40 mg Documented by: Remdesivir 200 mg/ Sodium (Chloride) 250 mls @ 250 mls/hr IV ONETIME ONE Stop: 12/17/20 12:29 Last Admin: 12/17/20 11:45 Dose: 250 mls/hr Documented by: Insulin Human Lispro (Insulin Lispro 100 Unit/Ml 3 Ml Kwikpen) 0 unit SUBCUT QIDACANDBED [facility]; Protocol Last Admin: 12/18/20 12:47 Dose: 15 unit Documented by: Methylprednisolone Sodium Succinate (Methylprednisolone Sodium Succinate 40 Mg/1 Ml Sdv) 60 mg IVPUSH Q6H [facility] Last Admin: 12/19/20 01:34 Dose: 60 mg Documented by: - Exam Quality Assessment: Supplemental Oxygen - Patient Data Lab Results Last 24 hrs: Laboratory Results - last 24 hr 12/18/20 12/18/20 12/18/20 Range/Units 11:40 11:55 17:30 WBC (4.23-9.07) K/mm3 RBC (4.63-6.08) M/mm3 Hgb (13.7-17.5) gm/dl Hct (40.1-51.0) % MCV (79.0-92.2) fl MCH (25.7-32.2) pg MCHC (32.2-35.5) g/dl RDW Std Deviation (35.1-43.9) fL Plt Count (163-337) K/mm3 MPV (9.4-12.3) fl Neut % (Auto) (34.0-67.9) % Lymph % (Auto) (21.8-53.1) % [place] % (Auto) (5.3-12.2) % Eos % (Auto) (0.8-7.0) Baso % (Auto) (0.1-1.2) % Neut # (Auto) (1.78-5.38) K/mm3 Lymph # (Auto) (1.32-3.57) K/mm3 [place] # (Auto) (0.30-0.82) K/mm3 Eos # (Auto) (0.04-0.54) K/mm3 Baso # (Auto) (0.01-0.08) K/mm3 Manual Slide Review Puncture Site ABG pH (7.35-7.45) ABG pCO2 (35.0-45.0) mmHg ABG pO2 (80.0-100.0) mmHg ABG HCO3 (22.0-26.0) meq/L ABG O2 Saturation (96.0-97.0) % ABG Base Excess (-2-2.0) A-a Gradient mmHg O2 Delivery Device Oxygen Flow Rate FiO2 (21.00-100.00) % Blood Gas Comments Glucose 517 H* (70-99) mg/dL POC Glucose 470 H* 444 H* (70-99) mg/dL 12/18/20 12/18/20 12/19/20 Range/Units 17:34 20:27 06:26 WBC (4.23-9.07) K/mm3 RBC (4.63-6.08) M/mm3 Hgb (13.7-17.5) gm/dl Hct (40.1-51.0) % MCV (79.0-92.2) fl MCH (25.7-32.2) pg MCHC (32.2-35.5) g/dl RDW Std Deviation (35.1-43.9) fL Plt Count (163-337) K/mm3 MPV (9.4-12.3) fl Neut % (Auto) (34.0-67.9) % Lymph % (Auto) (21.8-53.1) % [place] % (Auto) (5.3-12.2) % Eos % (Auto) (0.8-7.0) Baso % (Auto) (0.1-1.2) % Neut # (Auto) (1.78-5.38) K/mm3 Lymph # (Auto) (1.32-3.57) K/mm3 [place] # (Auto) (0.30-0.82) K/mm3 Eos # (Auto) (0.04-0.54) K/mm3 Baso # (Auto) (0.01-0.08) K/mm3 Manual Slide Review Puncture Site Lt radial ABG pH 7.39 (7.35-7.45) ABG pCO2 35.9 (35.0-45.0) mmHg ABG pO2 65.0 L (80.0-100.0) mmHg ABG HCO3 21.3 L (22.0-26.0) meq/L ABG O2 Saturation 91.7 L (96.0-97.0) % ABG Base Excess -2.5 L (-2-2.0) A-a Gradient 604 mmHg O2 Delivery Device Hiflow nasal cannula Oxygen Flow Rate 60.0 FiO2 100.00 (21.00-100.00) % Blood Gas Comments W/ nrb Glucose (70-99) mg/dL POC Glucose 438 H* 386 H (70-99) mg/dL 12/19/20 Range/Units 06:32 WBC 4.87 (4.23-9.07) K/mm3 RBC 4.53 L (4.63-6.08) M/mm3 Hgb 14.9 (13.7-17.5) gm/dl Hct 42.8 (40.1-51.0) % MCV 94.5 H (79.0-92.2) fl MCH 32.9 H (25.7-32.2) pg MCHC 34.8 (32.2-35.5) g/dl RDW Std Deviation 45.9 H (35.1-43.9) fL Plt Count 85 L (163-337) K/mm3 MPV 10.7 (9.4-12.3) fl Neut % (Auto) 90.8 H (34.0-67.9) % Lymph % (Auto) 3.3 L (21.8-53.1) % [place] % (Auto) 5.7 (5.3-12.2) % Eos % (Auto) 0 L (0.8-7.0) Baso % (Auto) 0.0 L (0.1-1.2) % Neut # (Auto) 4.42 (1.78-5.38) K/mm3 Lymph # (Auto) 0.16 L (1.32-3.57) K/mm3 [place] # (Auto) 0.28 L (0.30-0.82) K/mm3 Eos # (Auto) 0.00 L (0.04-0.54) K/mm3 Baso # (Auto) 0.00 L (0.01-0.08) K/mm3 Manual Slide Review Abnormal smear Puncture Site ABG pH (7.35-7.45) ABG pCO2 (35.0-45.0) mmHg ABG pO2 (80.0-100.0) mmHg ABG HCO3 (22.0-26.0) meq/L ABG O2 Saturation (96.0-97.0) % ABG Base Excess (-2-2.0) A-a Gradient mmHg O2 Delivery Device Oxygen Flow Rate FiO2 (21.00-100.00) % Blood Gas Comments Glucose (70-99) mg/dL POC Glucose (70-99) mg/dL Result Diagrams: 12/19/20 06:32 12/18/20 04:50 Sepsis Event Note - Evaluation Sepsis Screening Result: No Definite Risk - Focused Exam Vital Signs: Vital Signs Temp Pulse Resp BP Pulse Ox Pulse Ox 12/19/20 06:50 92 L 12/19/20 05:11 87 L 12/19/20 04:35 97.5 F 73 28 H 99/53 L 82 L 12/19/20 04:21 91 L 12/18/20 23:55 88 L 12/18/20 23:37 98.1 F 69 28 H 101/85 83 L 12/18/20 21:13 89 L 12/18/20 20:23 98.6 F 71 30 H 94/48 L 81 L - Problem List Review Problem List Initiated/Reviewed/Updated: Yes - My Orders Last 24 Hours: My Active Orders 12/18/20 07:26 Blood Glucose Check, Bedside [RC] QIDACANDBED 12/18/20 08:26 RT Chest Physiotherapy [RC] ASDIRECTED 12/18/20 09:00 Enoxaparin [Lovenox] 30 mg SUBCUT DAILY Folic Acid 1 mg PO DAILY Pantoprazole [ProTONIX] 40 mg PO DAILY Rosuvastatin [Crestor] 10 mg PO DAILY Thiamine [Vitamin B-1] 100 mg PO DAILY 12/18/20 Lunch Consistent Carbohydrate Diet [DIET] 12/18/20 11:38 RT Oxygen High Flow [RESPCARE] Routine 12/18/20 17:00 Insulin Lispro [HumaLOG] See Protocol SUBCUT QIDACANDBED 12/19/20 06:00 Chest 1V Frontal [CR] Stat methylPREDNISolone Sod Succ [Solu-MEDROL] 80 mg IVPUSH Q6H 12/19/20 06:32 COMPREHENSIVE METABOLIC PN,CMP [CHEM] DAILY D-DIMER QUANTITATIVE [COAG] Routine LACTATE DEHYDROGENASE,LDH [CHEM] Routine 12/19/20 07:00 Insulin Lispro [HumaLOG] 5 unit SUBCUT TIDAC 12/20/20 06:00 CBC WITH AUTO DIFF [HEME] DAILY COMPREHENSIVE METABOLIC PN,CMP [CHEM] DAILY - Plan Plan:: 70-year-old male with a past medical history as listed above who presents to the emergency department testing luna positive and hypoxic in the nearby walk-in clinic. Referred for acute on chronic congestive heart failure, acute hypoxic respiratory failure (multifactorial). 1. Acute hypoxic respiratory failure which is multifactorial. CHF exacerbation (mild) in conjunction with acute coronavirus 19 pneumonitis which is his main disease process Patient to be diuresed with IV Lasix twice daily with close monitoring of volume status and weights. Limit salt and free water. Supplemental oxygen as necessary and wean or advance as tolerated. Now worsening on high flow, on the borderline of BiPAP. Respiratory therapy consult. COVID-19 protocol with antivirals, creased to Solu-Medrol 80 mg IV every 6 hours for now. Isolation. Incentive spirometry encouraged. Proning position encouraged. Echocardiogram; awaiting results. Chest x-ray maintenance exam today shows mild progression of disease. Significant known pulmonary fibrosis. No dense effusions. 2. Acute on chronic congestive heart failure. Awaiting results from echocardiogram We will try to find a previous study for comparison. Plan as above. 3. COVID-19 pneumonitis. Plan as above. Initiate Tocilizumab today. Hypercoagulable prophylaxis with enoxaparin. 4. Type 2 diabetes mellitus. His oral hypoglycemics will be placed on hold. The hospital hyperglycemia protocol will be invoked. 5. Pulmonary fibrosis. Continue bronchodilators. Steroids. Further plans as noted above. 6. CKD stage III-IV. Monitor volume status. Patient requires active diuresis. Daily check of chemistries. Avoid nephrotoxins. Replace electrolytes as necessary. All other medical comorbidities are stable and nonactive conditions, will continue home medications at regular dose with the exception of those changes as noted above. CODE STATUS: Full code. DVT prophylaxis with enoxaparin.
[2020-12-19] MEDS: Folic Acid 1 MG Tab PO SCH (08:38)
[2020-12-19] MEDS: Enoxaparin 30 MG/0.3 ML Syringe SUBCUT SCH (08:38)
[2020-12-19] MEDS: Pantoprazole 40 MG Tab.CR PO SCH (08:38)
[2020-12-19] MEDS: Rosuvastatin 10 MG Tab PO SCH (08:38)
[2020-12-19] MEDS: Thiamine 100 MG Tab PO SCH (08:38)
[2020-12-19] MEDS: Carvedilol 3.125 MG Tab PO SCH ×2 (08:39→17:44)
[2020-12-19] MEDS: REMDESIVIR 100 MG in Sodium Chloride 0.9% 100 ML IV SCH (08:39)
[2020-12-19] MEDS: Insulin Lispro 100 Unit/ML 3 ML KwikPen SUBCUT SCH ×7 (08:40→22:17)
--- NOTE | 2020-12-19 08:42 | CR ---
Chest: Portable view of the chest was obtained. Comparison: Prior chest x-ray of 12/17/20. Heart size is enlarged. Upper mediastinum is stable. Increased density is seen within the right lung which is increased from prior study and currently has the appearance of probable COVID pneumonia. Slight peripheral density is also noted within the left chest likely representing additional COVID pneumonia. Pulmonary vessels are increased but stable from prior exam. Bony structures show nothing acute from prior study. Impression: 1. Slight increasing peripheral densities within both sides of the chest most likely representing new areas of COVID pneumonia. 2. Stable cardiomegaly with mild stable pulmonary vascular congestion. Diagnostic code #3
[2020-12-19] MEDS ORDERED: Enoxaparin 40 MG/0.4 ML Syringe SUBCUT SCH (09:00)
[2020-12-19] MEDS: methylPREDNISolone Sodium Succinate 125 MG/2 ML SDV IVPUSH SCH (17:43)
[2020-12-20] MEDS: methylPREDNISolone Sodium Succinate 125 MG/2 ML SDV IVPUSH SCH ×3 (01:00→11:46)
[2020-12-20] MEDS: Albuterol/Ipratropium 3.0-0.5 MG/3 ML Neb Soln NEB PRN ×2 (02:57→09:01)
[2020-12-20] MEDS: Acetaminophen 325 MG Tab PO PRN (03:19)
[2020-12-20] MEDS: Furosemide 40 MG/4 ML VIAL IVPUSH SCH ×2 (06:28→14:32)
[2020-12-20] MEDS ORDERED: Sodium Chloride 0.9% 0 ML ONE (07:54)
[2020-12-20] MEDS ORDERED: Carvedilol 3.125 MG Tab PO SCH (08:00)
[2020-12-20] MEDS: Rosuvastatin 10 MG Tab PO SCH (08:05)
[2020-12-20] MEDS: Thiamine 100 MG Tab PO SCH (08:05)
[2020-12-20] MEDS: Pantoprazole 40 MG Tab.CR PO SCH (08:06)
[2020-12-20] MEDS: Folic Acid 1 MG Tab PO SCH (08:06)
[2020-12-20] MEDS: Enoxaparin 30 MG/0.3 ML Syringe SUBCUT SCH (08:06)
[2020-12-20] MEDS: Insulin Lispro 100 Unit/ML 3 ML KwikPen SUBCUT SCH ×4 (08:06→11:46)
[2020-12-20] MEDS: REMDESIVIR 100 MG in Sodium Chloride 0.9% 100 ML IV SCH (08:08)
--- NOTE | 2020-12-20 13:18 | PCM.SN.2 ---
- Free Text/Narrative Note: RN and I met pt in his room. I explained the CPR and intubation at length to patient. After he made calls to someone, he eventually agreed with both CPR and intubation. All questions were answered. Based on pt's condition, I feel pt needs higher level care. I discussed with pt who agreed to be transferred to higher level hospital. I called two hospitals [facility] and [facility] in [place] and hospital in [place], but unfortunately all of hospitals are full. But I got a bed from [facility] in [place]. I spoke to explosive ordnance disposal manager Dr. Kern who accepted the patient. Both Dr. Kern and I believe that we should intubate this patient first and then transfer him. I spoke to patient daughter Kayleen who agreed with the plan, ie intubate the patient first and then transfer him to [place]. We need to fly him to [place].
--- NOTE | 2020-12-20 13:30 | PCM.DCSUM1 ---
Discharge Summary - Hospital Course Free Text/Narrative:: 70-year-old male with a past medical history as listed above who presents to the emergency department testing luna positive and hypoxic in the nearby walk-in clinic. Referred for acute on chronic congestive heart failure, acute hypoxic respiratory failure (multifactorial). 1. Acute hypoxic respiratory failure which is multifactorial. CHF exacerbation (mild) in conjunction with acute coronavirus 19 pneumonitis which is his main disease process Patient to be diuresed with IV Lasix twice daily with close monitoring of volume status and weights. Limit salt and free water. Supplemental oxygen as necessary and wean or advance as tolerated. Now worsen ing on high flow, on the borderline of BiPAP. Respiratory therapy consult. COVID-19 protocol with antivirals, creased to Solu-Medrol 80 mg IV every 6 hours for now. Isolation. Incentive spirometry encouraged. Proning position encouraged. Echocardiogram; awaiting results. Chest x-ray maintenance exam today shows mild progression of disease. Significant known pulmonary fibrosis. No dense effusions. 2. Acute on chronic congestive heart failure. Awaiting results from echocardiogram We will try to find a previous study for comparison. Plan as above. 3. COVID-19 pneumonitis. Plan as above. Initiate Tocilizumab today. Hypercoagulable prophylaxis with enoxaparin. 4. Type 2 diabetes mellitus. His oral hypoglycemics will be placed on hold. The hospital hyperglycemia protocol will be invoked. 5. Pulmonary fibrosis. Continue bronchodilators. Steroids. Further plans as noted above. 6. CKD stage III-IV. Monitor volume status. Patient requires active diuresis. Daily check of chemistries. Avoid nephrotoxins. Replace electrolytes as necessary. Based on pt's condition, I feel pt needs higher level care. I discussed with pt who agreed to be transferred to higher level hospital. I called two hospitals [facility] in [place] and [facility], but unfortunately all of hospitals are full. But I got a bed from [facility] in [place]. I spoke to front office administrator Dr. Kern who accepted the patient. Both Dr. Kern and I believe that we should intubate this patient first and then transfer him. I spoke to patient daughter Kayleen who agreed with the plan, ie intubate the patient first and then transfer him to [place]. We need to fly him to [place]. Diagnosis: Stroke: No - Discharge Data Discharge Date: 12/20/20 Discharge Disposition: DC/Tfer to Acute Hospital 02 Condition: Critical - Referral to Home Health Primary Care Physician: Alba Walker MD - Patient Summary/Data Consults: Consultations 12/17/20 19:01 Respiratory Care Assess and Treatment [CONS] Routine - Patient Instructions Driving: Do Not Drive - Discharge Plan *PRESCRIPTION DRUG MONITORING PROGRAM REVIEWED*: Not Applicable *COPY OF PRESCRIPTION DRUG MONITORING REPORT IN PATIENT RE: Not Applicable Home Medications: Home Meds Pantoprazole [ProTONIX] 40 mg PO DAILY 01/23/14 [History] Rosuvastatin [Crestor] 10 mg PO BEDTIME 01/23/14 [History] Valsartan 40 mg PO DAILY 01/23/14 [History] sitaGLIPtin Phosphate [Januvia] 100 mg PO DAILY 01/23/14 [History] Albuterol [Proventil HFA] 2 inhalation INH Q4H PRN 12/17/20 [History] Fluticasone/Vilanterol [Breo Ellipta 200-25 MCG Inhalation Kit] 1 inhalation INH DAILY 12/17/20 [History] Folic Acid 1 mg PO DAILY 12/17/20 [History] Thiamine [Vitamin B-1] 100 mg PO DAILY 12/17/20 [History] Torsemide [Demadex] 20 mg PO DAILY 12/17/20 [History] Docusate Sodium [Colace] 100 mg PO BID PRN cap 12/20/20 [Rx] Enoxaparin [Lovenox] 30 mg SUBCUT DAILY syringe 12/20/20 [Rx] Furosemide [Lasix] 40 mg IVPUSH BIDDIURETIC vial 12/20/20 [Rx] Insulin Lispro [Humalog] 0 unit SUBCUT QIDACANDBED pen 12/20/20 [Rx] Insulin Lispro [Humalog] 5 unit SUBCUT TIDAC pen 12/20/20 [Rx] Ondansetron [Zofran ODT] 4 mg PO Q4H PRN tab.dis 12/20/20 [Rx] Ondansetron [Zofran] 4 mg IV Q4H PRN vial 12/20/20 [Rx] Remdesivir 100 mg IV Q24H vial 12/20/20 [Rx] Sodium Chloride 0.9% [Normal Saline] 75 ml IV Q24H bag 12/20/20 [Rx] methylPREDNISolone Sod Succ [Solu-MEDROL] 80 mg IVPUSH Q6H sdv 12/20/20 [Rx] Oxygen Therapy Mode: Mechanical Ventilation Patient Handouts: COVID-19, Heart Failure Action Plan, COVID-19: How to Protect Yourself and Others - CDC, Sepsis, Self Care, Adult Forms: ED Department Discharge Referrals: Alba Walker MD [Primary Care Provider] - - Discharge Summary/Plan Comment DC Time >30 min.: Yes Total # of Minutes for Discharge Time: 90mins - General Info Date of Service: 12/20/20 Admission Dx/Problem (Free Text: Admission Diagnosis/Problem Admission Diagnosis/Problem Hypoxia Subjective Update: SOB - Review of Systems General: Reports: Weakness, Fatigue HEENT: Reports: No Symptoms Pulmonary: Reports: Shortness of Breath, Cough Cardiovascular: Reports: No Symptoms Gastrointestinal: Reports: No Symptoms Genitourinary: Reports: No Symptoms Musculoskeletal: Reports: No Symptoms Skin: Reports: No Symptoms Neurological: Reports: No Symptoms Psychiatric: Reports: No Symptoms - Patient Data Vitals - Most Recent: Last Vital Signs Temp 35.9 C L 12/20/20 11:51 Pulse 73 12/20/20 11:51 Resp 28 H 12/20/20 11:51 BP 128/79 12/20/20 11:51 Pulse Ox 94 L 12/20/20 11:51 Weight - Most Recent: 96.978 kg I&O - Last 24 hours: Intake & Output 12/19/20 12/20/20 12/20/20 22:59 06:59 14:59 Intake Total 1095 300 Output Total 825 675 Balance 270 -375 Lab Results - Last 24 hrs: Laboratory Results - last 24 hr 12/20/20 12/20/20 Range/Units 04:45 04:45 WBC 5.15 (4.23-9.07) K/mm3 RBC 4.58 L (4.63-6.08) M/mm3 Hgb 14.8 (13.7-17.5) gm/dl Hct 43.1 (40.1-51.0) % MCV 94.1 H (79.0-92.2) fl MCH 32.3 H (25.7-32.2) pg MCHC 34.3 (32.2-35.5) g/dl RDW Std Deviation 46.1 H (35.1-43.9) fL Plt Count 85 L (163-337) K/mm3 MPV 10.6 (9.4-12.3) fl Neut % (Auto) 88.9 H (34.0-67.9) % Lymph % (Auto) 2.7 L (21.8-53.1) % [place] % (Auto) 8.0 (5.3-12.2) % Eos % (Auto) 0 L (0.8-7.0) Baso % (Auto) 0.2 (0.1-1.2) % Neut # (Auto) 4.58 (1.78-5.38) K/mm3 Lymph # (Auto) 0.14 L (1.32-3.57) K/mm3 [place] # (Auto) 0.41 (0.30-0.82) K/mm3 Eos # (Auto) 0.00 L (0.04-0.54) K/mm3 Baso # (Auto) 0.01 (0.01-0.08) K/mm3 Manual Slide Review Abnormal smear Sodium 136 (136-145) mEq/L Potassium 4.4 (3.5-5.1) mEq/L Chloride 100 (98-107) mEq/L Carbon Dioxide 25 (21-32) mEq/L Anion Gap 15.4 H (5-15) BUN 57 H (7-18) mg/dL Creatinine 1.9 H (0.7-1.3) mg/dL Est Cr Clr Drug Dosing 37.35 mL/min Estimated GFR (MDRD) 35 (>60) mL/min BUN/Creatinine Ratio 30.0 H (14-18) Glucose 272 H (70-99) mg/dL Calcium 8.5 (8.5-10.1) mg/dL Total Bilirubin 0.4 (0.2-1.0) mg/dL AST 82 H (15-37) U/L ALT 88 H (16-63) U/L Alkaline Phosphatase 56 (46-116) U/L Total Protein 5.9 L (6.4-8.2) g/dl Albumin 2.8 L (3.4-5.0) g/dl Globulin 3.1 gm/dL Albumin/Globulin Ratio 0.9 L (1-2) Med Orders - Current: Current Medications Acetaminophen (Acetaminophen 325 Mg Tab) 650 mg PO Q4H PRN PRN Reason: Pain (Mild 1-3)/fever Last Admin: 12/20/20 03:19 Dose: 650 mg Documented by: Albuterol (Albuterol 6.7 Gm Inhaler) 0 gm INH Q4H PRN PRN Reason: Shortness of Breath Albuterol/Ipratropium (Albuterol/Ipratropium 3.0-0.5 Mg/3 Ml Neb Soln) 3 ml NEB Q4H PRN PRN Reason: Shortness Of Breath/wheezing Last Admin: 12/20/20 09:01 Dose: 3 ml Documented by: Benzocaine/Menthol (Benzocaine/Cetylpyridinium/Menthol Lozenge) 1 lozenge MUCMEM Q2H PRN PRN Reason: Sore Throat Last Admin: 12/17/20 22:29 Dose: 1 lozenge Documented by: Docusate Sodium (Docusate Sodium 100 Mg Cap) 100 mg PO BID PRN PRN Reason: Constipation Enoxaparin Sodium (Enoxaparin 30 Mg/0.3 Ml Syringe) 30 mg SUBCUT DAILY [facility] Last Admin: 12/20/20 08:06 Dose: 30 mg Documented by: Folic Acid (Folic Acid 1 Mg Tab) 1 mg PO DAILY [facility] Last Admin: 12/20/20 08:06 Dose: 1 mg Documented by: Furosemide (Furosemide 40 Mg/4 Ml Vial) 40 mg IVPUSH BIDDIURETIC [facility] Last Admin: 12/20/20 06:28 Dose: 40 mg Documented by: Remdesivir 100 mg/ Sodium (Chloride) 100 mls @ 100 mls/hr IV Q24H [facility] Stop: 12/21/20 08:59 Last Admin: 12/20/20 08:08 Dose: 100 mls/hr Documented by: Insulin Human Lispro (Insulin Lispro 100 Unit/Ml 3 Ml Kwikpen) 0 unit SUBCUT QIDACANDBED [facility]; Protocol Last Admin: 12/20/20 11:46 Dose: 12 units Documented by: Insulin Human Lispro (Insulin Lispro 100 Unit/Ml 3 Ml Kwikpen) 5 unit SUBCUT TIDAC [facility] Last Admin: 12/20/20 11:46 Dose: 5 units Documented by: Methylprednisolone Sodium Succinate (Methylprednisolone Sodium Succinate 125 Mg/2 Ml Sdv) 80 mg IVPUSH Q6H [facility] Last Admin: 12/20/20 11:46 Dose: 80 mg Documented by: Ondansetron HCl (Ondansetron 4 Mg Tab.Dis) 4 mg PO Q4H PRN PRN Reason: nausea, able to take PO Ondansetron HCl (Ondansetron 4 Mg/2 Ml Sdv) 4 mg IV Q4H PRN PRN Reason: Nausea/Vomiting Pantoprazole Sodium (Pantoprazole 40 Mg Tab.Cr) 40 mg PO DAILY [facility] Last Admin: 12/20/20 08:06 Dose: 40 mg Documented by: Rosuvastatin Calcium (Rosuvastatin 10 Mg Tab) 10 mg PO DAILY [facility] Last Admin: 12/20/20 08:05 Dose: 10 mg Documented by: Thiamine HCl (Thiamine 100 Mg Tab) 100 mg PO DAILY [facility] Last Admin: 12/20/20 08:05 Dose: 100 mg Documented by: Discontinued Medications Carvedilol (Carvedilol 3.125 Mg Tab) 3.125 mg PO BIDMEALS [facility] Last Admin: 12/19/20 17:44 Dose: 3.125 mg Documented by: Carvedilol (Carvedilol 3.125 Mg Tab) 3.125 mg PO BID@0800,1700 [facility] Last Admin: 12/20/20 08:05 Dose: 3.125 mg Documented by: Dexamethasone (Dexamethasone 4 Mg/Ml Sdv) 6 mg IVPUSH ONETIME ONE Stop: 12/17/20 10:51 Last Admin: 12/17/20 11:05 Dose: 6 mg Documented by: Enoxaparin Sodium (Enoxaparin 30 Mg/0.3 Ml Syringe) 30 mg SUBCUT DAILY [facility] Stop: 12/18/20 11:00 Last Admin: 12/18/20 17:04 Dose: Not Given Documented by: Furosemide (Furosemide 20 Mg/2 Ml Vial) 20 mg IVPUSH ONETIME ONE Stop: 12/17/20 14:46 Last Admin: 12/17/20 15:07 Dose: 20 mg Documented by: Furosemide (Furosemide 40 Mg/4 Ml Vial) 40 mg IVPUSH BID [facility] Last Admin: 12/17/20 22:01 Dose: 40 mg Documented by: Remdesivir 200 mg/ Sodium (Chloride) 250 mls @ 250 mls/hr IV ONETIME ONE Stop: 12/17/20 12:29 Last Admin: 12/17/20 11:45 Dose: 250 mls/hr Documented by: Tocilizumab 800 mg/ Sodium (Chloride) 100 mls @ 100 mls/hr IV ONETIME ONE Stop: 12/19/20 09:59 Last Admin: 12/19/20 09:44 Dose: 100 mls/hr Documented by: Sodium Chloride (Normal Saline) Confirm Administered Dose 100 mls @ as directed .ROUTE .STK-MED ONE Stop: 12/20/20 07:55 Last Admin: 12/20/20 08:08 Dose: Not Given Documented by: Insulin Human Lispro (Insulin Lispro 100 Unit/Ml 3 Ml Kwikpen) 0 unit SUBCUT QIDACANDBED [facility]; Protocol Last Admin: 12/18/20 12:47 Dose: 15 unit Documented by: Methylprednisolone Sodium Succinate (Methylprednisolone Sodium Succinate 40 Mg/1 Ml Sdv) 60 mg IVPUSH Q6H [facility] Last Admin: 12/19/20 01:34 Dose: 60 mg Documented by: Methylprednisolone Sodium Succinate (Methylprednisolone Sodium Succinate 40 Mg/1 Ml Sdv) 80 mg IVPUSH Q6H [facility] Last Admin: 12/19/20 12:03 Dose: 80 mg Documented by: - Exam Quality Assessment: Reports: Supplemental Oxygen General: Reports: Alert, Oriented, Cooperative, Moderate Distress (due to sob) HEENT: Reports: Pupils Equal, Pupils Reactive, EOMI Neck: Reports: No JVD Lungs: Reports: Decreased Breath Sounds, Crackles, Rhonchi, Other (use of accessary muscles) Cardiovascular: Reports: Regular Rate GI/Abdominal Exam: Normal Bowel Sounds, Soft, Non-Tender, No Organomegaly Extremities: Normal Range of Motion, Non-Tender Skin: Reports: Warm, Dry, Intact Neurological: Reports: No New Focal Deficit, Normal Speech, Strength Equal Bilateral, Reflexes Equal Bilateral, Sensation Intact
[2020-12-20 16:54] VITALS: PULSE 76
[2020-12-20 18:15] VITALS: BP 132/87
== END 2020-12-20 17:39 | DRG 208 ==
LOC: JD.ED 09:24 → JD.MS 18:48
PROVIDERS: ADMIT Hospitalist; ATTEND Hospitalist
PROC: XW033E5 Introduction of Remdesivir Anti-infective into Peripheral Vein, Percutaneous Approach, New Technology Group 5 (ICD-10-PCS; principal; 2020-12-17)
PROC: 3E0333Z Introduction of Anti-inflammatory into Peripheral Vein, Percutaneous Approach (ICD-10-PCS; 2020-12-17)
PROC: XW033H5 Introduction of Tocilizumab into Peripheral Vein, Percutaneous Approach, New Technology Group 5 (ICD-10-PCS; 2020-12-19)
PROC: 5A1935Z Respiratory Ventilation, Less than 24 Consecutive Hours (ICD-10-PCS; 2020-12-19)
PROC: 0BH17EZ Insertion of Endotracheal Airway into Trachea, Via Natural or Artificial Opening (ICD-10-PCS; 2020-12-19)
DX: U07.1 COVID-19 (principal); J96.01 Acute respiratory failure with hypoxia; Z97.3 Presence of spectacles and contact lenses; J12.82 Pneumonia due to coronavirus disease 2019; N18.4 Chronic kidney disease, stage 4 (severe); E11.9 Type 2 diabetes mellitus without complications; I13.0 Hypertensive heart and chronic kidney disease with heart failure and stage 1 through stage 4 chronic kidney disease, or unspecified chronic kidney disease; Z88.8 Allergy status to other drugs, medicaments and biological substances; J84.10 Pulmonary fibrosis, unspecified; E78.00 Pure hypercholesterolemia, unspecified; K21.9 Gastro-esophageal reflux disease without esophagitis; Z79.899 Other long term (current) drug therapy; E11.22 Type 2 diabetes mellitus with diabetic chronic kidney disease; I50.9 Heart failure, unspecified; Z23 Encounter for immunization; Z91.041 Radiographic dye allergy status; Z88.0 Allergy status to penicillin; Z91.030 Bee allergy status; Z79.84 Long term (current) use of oral hypoglycemic drugs
CPT/HCPCS: 36415; 71045; 80053; 83880; 84484; 85025; 85379; 85610; 86140; 93005; J1100; J1940; J7050; 36600; 82803; 82947; 83615; 93306; 94640; 94667; 94668; 94762; 96365; 96366; 96375; 99221; 99231; 99233; 99239; 99285-25; A9270-GY; J1650; J1815; J2920; J2930; J7620-GY; M0249; Q0249